=== PATIENT | female | born 2000 | race Caucasian/White ===

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

== ENCOUNTER 2018-05-08 22:00 | Emergency (ER) | payer MEDICAID, SELFPAY ==
[2018-05-08 22:00] VITALS: BP 127/77; PULSE 85; RESP 18; TEMP 36.2; O2SAT 98; BMI 21.5
[2018-05-08] MEDS: Ondansetron 4 MG/2 ML Vial IV (22:22)
[2018-05-08] MEDS: 0.9% Normal Saline 1,000 ML 1000 ML IV (22:22)
[2018-05-08 22:29] LABS: Absolute Lymphocyte Count 1.48 X10^3/ul (0.83-4.51); Absolute Neutrophil Count 5.7 X10^3/uL (2.0-7.7); Basophil# 0.01 X10^3/uL; Basophil% 0.1 % (0-1); Eosinophil# 0.05 X10^3/uL; Eosinophils% 0.7 % (0-5); Hematocrit 37.9 % (37-47); Hemoglobin 11.6 g/dl (12.0-15.0); Lymphocyte # 1.48 X10^3/ul (4.0); Lymphocyte % 19.6 % (19-41); Mean Corp Hgb Conc 30.6 g/gl (32-36); Mean Corpuscular Hgb 23.9 pg (27.0-32.0); Mean Platelet Vol. 9.4 fl (6.2-12.0); Neutrophil % 75.5 % (47-70); Platelet Count 313 K/mm3 (150-450); RBC Distribution Width CV 17.3 % (11.6-14.6); RBC Distribution Width SD 49.3 fl (35.1-43.9); Red Blood Count 4.86 M/mm3 (4.2-5.4); White Blood Count 7.6 K/mm3 (4.4-11.0)
[2018-05-08 22:30] LABS: POSITIVE COUNT NO; POSITIVE DIFFERENTIAL NO; POSITIVE MORPHOLOGY NO
[2018-05-08 22:54] LABS: Mucous, Urine 0 SEEN /hpf (<or=2+)
[2018-05-08 22:55] LABS: Color, Urine Yellow (Yellow); Glucose, Dipstick Normal (Normal); Ketone-Dipstick 5 mg/dl (Negative); Leukocyte Esterase-Dipstick 500 /ul (Negative); Nitrite-Dipstick Positive (Negative); Occult Blood-Urine 250 /ul (Negative); Protein-Dipstick 30 mg/dl (Negative); Urine Bilirubin Dipstick Negative (Negative); Urine Clarity Cloudy (Clear); Urine Urobilinogen 1 mg/dl (Normal); Urine pH 6.5 (5.0 - 8.0)
[2018-05-08 22:56] LABS: ALB/GLOB Ratio 0.9 RATIO (0.9-2.4); AST(SGOT) 11 U/L (15-37); Alanine Aminotransfer ALT/SGPT 16 U/L (13-56); Albumin, Serum 3.6 g/dL (3.2-5.0); Alkaline Phosphatase 33 U/L (45-117); Anion Gap 7 (5-15); BUN 12 mg/dL (7-18); BUN/Creat Ratio 19.9 RATIO (10-20); Calcium,Total 8.5 mg/dL (8.5-10.1); Chloride 107 mmol/L (98-107); EST Glomerular Filtration Rate 135 mL/min (>60); Est Glom Filt Rate - Afr Amer 163 mL/min (>60); Estimated Creatinine Clearance 129.15 ml/min; Globulin 4.1 g/dL (2.2-4.2); Glucose 94 mg/dL (74-106); Lipase 113 U/L (73-393); Potassium 3.7 mmol/L (3.5-5.1); Protein, Total 7.7 g/dL (6.4-8.2); Sodium Level 138 mmol/L (136-145)
[2018-05-08 23:04] LABS: Red Blood Cells-Urine > 100 SEEN /hpf (0-5)
[2018-05-08 23:05] LABS: Squamous Epithelial Cells - UA 0-5 SEEN /hpf (5-10); White Blood Cells 10-25 SEEN /hpf (0-5)
[2018-05-08 23:06] LABS: Bacteria 3+ /hpf (None Seen)
--- NOTE | 2018-05-08 23:13 | ED.VISSUMM ---
- ER Visit Summary Date of Service: 05/08/18 Chief Complaint: Abdominal pain History of Present Illness: The patient is a 18 F who presents with abdominal pain. She is currently on her menstrual period. She has had some lower abdominal cramping which is no worse than normal when she is on her menstrual period. This evening after eating dinner she developed nausea and vomiting. She has had 5 episodes of nonbloody nonbilious emesis over the last 5-6 hours. No diarrhea. She denies any dysuria frequency urgency. She also complains of a headache. Her mother was recently admitted for an influenza-like illness. Patient reports chills but no fevers. Physical Examination: Afebrile vitals normal No distress Moist mucous membranes Heart regular rate and rhythm Lungs are clear Abdomen soft nontender nondistended Alert No focal or lateralizing neurological deficits Test Results: Labs notable for hemoglobin 11.6. UA shows 500 leukocyte esterase, positive nitrates, 10-25 WBCs, greater than 100 RBCs, 3+ bacteria. Emergency Department Course and Treatment: Her urinalysis is contaminated with blood likely related to her menstrual period however does show leukocyte esterase and nitrates as well suggestive of UTI. She was given Bactrim here. She was treated with IV fluids and Zofran. On reevaluation she does feel better she had no further vomiting but is still complaining of a headache and was given IV Toradol. Patient will be discharged. She understands to return for new or worsening symptoms. She was also given a prescription for Zofran for nausea. Treatment Plan: [] Disposition: Discharge Impression: UTI Vomiting Headache This note was generated with [employer] dictation software. It may contain incorrect words, spelling, and punctuation that were not noted in review of the chart prior to signing ED Disposition - Plan for ED Patient: Referrals: Reginaldo Jorgensen MD [Primary Care Provider] -
--- NOTE | 2018-05-08 23:15 | ED.DEP ---
ED Disposition - Plan for ED Patient: Instructions: ED Nausea Vomiting, ED UTI Cystitis Female Prescriptions: Ondansetron [Zofran Odt] 4 mg PO Q8H PRN PRN #10 tab PRN Reason: Nausea Smz/Tmp Ds [Bactrim Ds] 1 tab PO BID #14 tab Referrals: Reginaldo Jorgensen MD [Primary Care Provider] -
[2018-05-08] MEDS: Smz/Tmp Ds Tablet 1 TABLET PO (23:29)
[2018-05-08] MEDS: Ketorolac 30 MG/ML Syringe IV (23:29)
[2018-05-08 23:36] VITALS: RESP 16
== END 2018-05-08 23:36 | disposition home or self-care (01) ==
LOC: ED 22:29
PROVIDERS: Emergency Provider Emergency Medicine; Family Provider Family Medicine; PCP Family Medicine
DX: N39.0 Urinary tract infection, site not specified (principal); R51 Headache; R11.2 Nausea with vomiting, unspecified
CPT/HCPCS: 80053; 81001; 83690; 85025; 96361; 96374; 96375; 99283; J7030; A4216; J2405

== ENCOUNTER → 2019-03-25 14:16 | Outpatient (CLI) | payer MEDICAID, SELFPAY ==
[2019-03-25 17:12] LABS: Chlamydia Trachomatis by PCR Negative (Negative); Neisserai gonorrhoeae by PCR Negative (Negative); Probe Check PASS; Sample Adequacy Control PASS; Specimen Processing Control PASS
== END ==
LOC: LABSPEC 14:18
PROVIDERS: Visit Provider Obstetrics & Gynecology
DX: Z11.3 Encounter for screening for infections with a predominantly sexual mode of transmission (principal)
CPT/HCPCS: 87491; 87591

== ENCOUNTER 2019-09-21 16:35 | Emergency (ER) | payer MEDICAID, SELFPAY ==
[2019-09-21 16:36] VITALS: BP 121/86; PULSE 59; RESP 18; TEMP 36.7; O2SAT 99; BMI 22.8
--- NOTE | 2019-09-21 17:29 | ED.VIS.GEN ---
History of Present Illness Chief Complaint: Lower Extremity Injury Informant: Patient Narrative: Patient presents with right ankle pain. She states he was not watching where she was going and stepped in a hole and rolled her ankle. She is ambulatory on scene in the ED. She complains of pain when she steps on the lateral aspect of the right ankle as well as the dorsum of the right foot. She had ibuprofen last night which seemed to help but she did not take any today she has recurrence of pain. Past Medical History - Allergies and Home Meds Allergies/Adverse Reactions: Allergies No Known Allergies Allergy (Verified 09/21/19 16:38) Primary Care Physician: Reginaldo Jorgensen [Primary Care Provider] - Prior records reviewed: Yes Lives: With Family Smoking Status: Current every day smoker Alcohol: None Drugs: None Review of Systems General: Denies: Chills, Fever, Sweats Eyes: Denies: Visual changes - bilaterally, Diplopia ENT: Denies: Rhinorrhea, Sore throat Cardiovascular: Denies: Chest pain, Palpitations Respiratory: Denies: Dyspnea, Cough, Dyspnea on exertion Gastrointestinal: Denies: Abdominal pain, Nausea, Vomiting, Diarrhea, Melena, Hematochezia Musculoskeletal: Reports: Arthralgias - : Foot pain Skin: Denies: Rash Neurological: Denies: Headache Psych: Reports: Depression Physical Exam Vital Signs/Narrative: Vital Signs Temp Pulse Resp BP Pulse Ox 09/21/19 16:36 98.0 F 59 L 18 121/86 H 99 General: Well nourished, Well developed, No Acute Distress Head: Normocephalic, Atraumatic Cardiovascular: Regular rate, Regular rhythm Respiratory: No distress, CTA bilaterally Extremities: - - Tenderness to palpation over lateral right malleolus. There is also mild tenderness over the dorsum of the right foot. There is no bruising or deformity. Skin: Normal color, No rash Neurological: Alert Psychological: Normal affect Diagnostic/Tx/Re-eval - Medical Decision Making Presents with ankle pain after twisting her ankle. Her x-ray is negative. She is given Naprosyn for pain. She be placed in a Aircast and given crutches. She is counseled to ice and elevate. Patient stable for discharge. ED Disposition - Plan for ED Patient: Disposition: Home or Assisted Living Diagnosis: Ankle sprain Instructions: ED Sprain Ankle W X Ray Prescriptions: Naproxen [Naprosyn] 500 mg PO BID PRN #20 tab Prescription Printed Referrals: Reginaldo Jorgensen [Primary Care Provider] -
--- NOTE | 2019-09-21 17:31 | RAD_ITS ---
STUDY: X-RAY - RIGHT FOOT CLINICAL: Female, 19 years old. RIGHT ANKLE AND FOOT PAIN AFTER FALL. MORE PAIN ON LATERAL SIDE TECHNIQUE: 3 view(s) of the foot. COMPARISON: None. FINDINGS: Normal talus, calcaneus, and tarsal bones. Normal visualized subtalar, talonavicular, calcaneocuboid, tarsal and tarsometatarsal articulations. Normal metatarsi. Normal metatarsophalangeal joint of the great toe. There is a bipartite tibial sesamoid. Normal interphalangeal joint of the great toe. Normal phalanges of the great toe. Normal second through fifth metatarsophalangeal joints. Normal interphalangeal joints and phalanges of the lesser toes. The soft tissue structures are unremarkable. RAD/Foot min 3 Views IMPRESSION: Normal x-ray examination of the foot. Electronically Signed: Meghan Mccall MD at 18:10 EDT , Service support ,
[2019-09-21] MEDS: Ibuprofen 600 MG Tablet PO (17:52)
--- NOTE | 2019-09-21 17:57 | RAD_ITS ---
STUDY: X-RAY - RIGHT ANKLE REASON FOR EXAM: Female, 19 years old. RIGHT ANKLE AND FOOT PAIN AFTER FALL. MORE PAIN ON LATERAL SIDE TECHNIQUE: 3 view(s) of the ankle. COMPARISON: None. FINDINGS: Normal visualized distal tibia and fibula. Normal medial and lateral malleoli. Normal tibiotalar articulation and ankle mortise. Normal visualized talus and calcaneus. The visualized subtalar, talonavicular, calcaneocuboid and tarsal articulations are normal. Soft tissue swelling. RAD/Ankle min 3 Views IMPRESSION: Soft tissue swelling without underlying fracture or dislocation. Electronically Signed: Meghan Mccall MD at 18:09 EDT , Service support ,
== END 2019-09-21 18:49 | disposition home or self-care (01) ==
PROVIDERS: Emergency Provider Student in an Organized Health Care Education/Training Program; PCP Family Medicine
DX: S93.401A Sprain of unspecified ligament of right ankle, initial encounter (principal); F17.200 Nicotine dependence, unspecified, uncomplicated; X50.1XXA Overexertion from prolonged static or awkward postures, initial encounter; Y93.01 Activity, walking, marching and hiking; Y92.89 Other specified places as the place of occurrence of the external cause; Y99.8 Other external cause status
CPT/HCPCS: 73610; 73630; 99284

== ENCOUNTER 2019-10-02 03:19 | Emergency (ER) | payer MEDICAID, SELFPAY ==
--- NOTE | 2019-10-02 03:20 | ED.VIS.GEN ---
History of Present Illness Chief Complaint: Female C/O Informant: Patient Narrative: 19-year-old female presents with chief complaint of vaginal discharge. She states she just finished her normal. And she still having brown vaginal discharge. She states it is not bloody. She has some mild cramping. No fevers, chills, nausea, vomiting. She states she does have an [employer] but has not called her because the cramping just started overnight. Dates she is not concerned for STDs. Past Medical History - Allergies and Home Meds Allergies/Adverse Reactions: Allergies No Known Allergies Allergy (Verified 10/02/19 03:23) Primary Care Physician: Reginaldo Jorgensen [Primary Care Provider] - Prior records reviewed: Yes Lives: Spouse/ Significant Other Smoking Status: Current every day smoker Alcohol: None Drugs: None Review of Systems General: Denies: Chills, Fever, Sweats Eyes: Denies: Visual changes - bilaterally, Diplopia ENT: Denies: Rhinorrhea, Sore throat Cardiovascular: Denies: Chest pain, Palpitations Respiratory: Denies: Dyspnea, Cough, Dyspnea on exertion Gastrointestinal: Reports: Abdominal pain. Denies: Nausea, Vomiting, Diarrhea, Melena, Hematochezia Genitourinary: Denies: Dysuria, Hematuria, Frequency - Brownish vaginal discharge Musculoskeletal: Denies: Back pain, Extremity Pain Skin: Denies: Rash, Wounds Neurological: Denies: Headache, Weakness, Numbness Physical Exam General: Well nourished, Well developed, No Acute Distress Head: Normocephalic, Atraumatic Eyes: Perrl, EOMI ENT: Moist mucous membranes, No rhinorrhea Neck: Supple, Nontender Cardiovascular: Regular rate Respiratory: No distress Abdomen: Soft : - - There is to be dried blood in the posterior fornix. The cervical os is closed. There is no active bleeding. No adnexal tenderness. No cervical motion tenderness. Back: Nontender, Normal Inspection Extremities: Nontender, No edema Skin: Normal color, No rash Neurological: Alert, Oriented x3 Psychological: Normal affect, Normal Mood Diagnostic/Tx/Re-eval - Medical Decision Making She presents with mild pelvic cramping and brownish discharge vaginally. On examination there is a scant amount of what looks like dried blood in the posterior fornix. The cervix is closed. She has no adnexal tenderness. No cervical motion tenderness. There is no other discharge to be noted. Patient's vital signs are stable and she is afebrile. Her GC chlamydia is pending a however she has no concern for STDs at this time and does not want to be empirically treated. She is negative for trichomonas. hCG is negative. Urinalysis is positive so she will be treated for UTI. She is counseled she will be called with the results of her STD testing. I believe she needs a pelvic ultrasound at this time. She feels comfortable being discharged home and following with her [employer]. Impression 1. Vaginal discharge 2. UTI 3. Mild pelvic cramping ED Disposition - Plan for ED Patient: Diagnosis: Vaginal discharge Instructions: ED Pelvic Pain UKO, ED CYSTITIS Female Adult Prescriptions: Cephalexin [Keflex] 500 mg PO Q12 #14 cap Prescription Printed Referrals: Reginaldo Jorgensen [Primary Care Provider] -
[2019-10-02 03:21] VITALS: BP 127/71; PULSE 87; RESP 16; TEMP 37; O2SAT 97; BMI 21.9
[2019-10-02 04:36] LABS: Color, Urine Yellow (Yellow); Glucose, Dipstick Normal (Normal); Ketone-Dipstick Negative (Negative); Leukocyte Esterase-Dipstick 25 /ul (Negative); Mucous, Urine 0 SEEN /hpf (<or=2+); Nitrite-Dipstick Positive (Negative); Occult Blood-Urine 50 /ul (Negative); Protein-Dipstick Negative (Negative); Squamous Epithelial Cells - UA 0 SEEN /hpf (5-10); Urine Bilirubin Dipstick Negative (Negative); Urine Clarity Clear (Clear); Urine Urobilinogen 1 mg/dl (Normal)
[2019-10-02 04:38] LABS: Internal QC Validated? YES +Cl - CLEAR BKGD; Pregnancy, Urine Negative Negative
[2019-10-02 04:44] LABS: Bacteria 1+ /hpf (None Seen); Red Blood Cells-Urine 0-5 SEEN /hpf (0-5); White Blood Cells 0-5 SEEN /hpf (0-5)
[2019-10-02] MEDS: Cephalexin 250 MG Capsule 500 MG PO (04:50)
[2019-10-02 04:52] VITALS: BP 130/78; PULSE 82; RESP 18; O2SAT 99
[2019-10-02 06:42] LABS: Chlamydia Trachomatis by PCR Negative (Negative); Neisserai gonorrhoeae by PCR Negative (Negative); Probe Check PASS; Sample Adequacy Control PASS; Specimen Processing Control PASS
== END 2019-10-02 04:52 | disposition home or self-care (01) ==
PROVIDERS: Emergency Provider Student in an Organized Health Care Education/Training Program; PCP Family Medicine
DX: N39.0 Urinary tract infection, site not specified (principal); N89.8 Other specified noninflammatory disorders of vagina; F17.200 Nicotine dependence, unspecified, uncomplicated
CPT/HCPCS: 81001; 81025; 87077; 87086; 87088; 87186; 87210; 87491; 87591; 99283

== ENCOUNTER → 2020-03-27 13:57 | Outpatient (CLI) | payer MEDICAID, SELFPAY ==
[2020-03-27 16:31] LABS: Free T3 2.9 pg/mL (2.18-3.98); T4 Free Direct 1.02 ng/dL (0.76-1.46); Thyroid Stim Hormone (TSH) 2.22 uIU/mL (0.358-3.74)
[2020-03-30 04:10] LABS: Chlamydia By Nucleic Acid AMP Negative (Negative)
[2020-03-30 11:28] LABS: Gonococcus By Nucleic Acid AMP Negative (Negative)
[2020-03-30 14:12] LABS: HPV Reflexed? NOT INDICATED
== END ==
PROVIDERS: PCP Family Medicine; Visit Provider Obstetrics & Gynecology
DX: R41.3 Other amnesia (principal); Z12.4 Encounter for screening for malignant neoplasm of cervix; Z11.3 Encounter for screening for infections with a predominantly sexual mode of transmission
CPT/HCPCS: 36415; 84439; 84443; 84481; 87491; 87591; 88175; G0145

== ENCOUNTER 2020-11-27 09:05 | Emergency (ER) | payer MEDICAID, SELFPAY ==
[2020-11-27 09:06] VITALS: BP 133/101; PULSE 101; RESP 16; TEMP 36.7; O2SAT 100; BMI 20.5
[2020-11-27 10:02] VITALS: BP 133/100; PULSE 100; RESP 16; TEMP 36.7; O2SAT 100
--- NOTE | 2020-11-27 10:19 | EDS_ITS ---
HPI History of Present Illness Chief Complaint: Headache Informant: patient Narrative Narrative: Patient is a 20 year old female presenting with 3 days of upper respiratory symptoms. Patient states it started with a dry throat that developed into a cough. She now had associated congestion, rhinorrhea and myalgias. She denies any fever, shortness of breath, nausea, vomiting, abdominal pain or rash. She has had some increased urinary frequency but attributes that to drinking more fluids. She took DayQuil at 7 AM. Patient not had her Covid vaccine. She denies any sick contacts. PFSH PFSH Medical History no medical history Home Medications cephalexin 500 mg PO Q12 #14 cap 10/02/19 [Rx Last Taken Unknown] Allergy/AdvReac Type Severity Reaction Status Date / Time No Known Allergies Allergy Verified 11/27/20 09:09 Surgical History Hx of section Social History Smoking Status: Never smoker ROS ROS ED Constitutional Constitutional ED: Reports chills; Denies fever(s) ENT ENT ED: Reports rhinorrhea, sore throat and other Details: congestion ; Denies ear pain Cardiovascular Cardiovascular: Denies chest pain or palpitations Respiratory/Chest Respiratory/Chest: Reports cough; Denies dyspnea, dyspnea on exertion or sputum Gastrointestinal Gastrointestinal: Denies abdominal pain, diarrhea, nausea or vomiting Genitourinary Genitourinary ED: Reports urinary frequency; Denies dysuria or hematuria Musculoskeletal Musculoskeletal: Reports myalgias; Denies arthralgias, back pain or neck pain Integumentary Denies rash Neurologic Neurologic: Reports headache(s); Denies weakness Psychiatric Psychiatric: Denies anxiety or depression EXAM Physical Exam Const Vital Signs: 11/27/20 09:06 11/27/20 10:02 Temperature 98.0 F 98.0 F Temperature Source Temporal Temporal Pulse Rate 101 H 100 Respiratory Rate 16 16 Blood Pressure 133/101 H 133/100 H Blood Pressure Mean 111 111 Pulse Ox 100 100 Oxygen Delivery Method Room Air Room Air Positive well nourished and well developed General Appearance ED: well developed HEENT Reports TM's clear and moist mucous membranes Negative for trauma Tympanic Membrane ED: Yes TM's clear Eyes PERRL and EOMs intact bilaterally Neck No no lymphadenopathy, supple and no meningeal signs General: Negative for tenderness Chest Wall inspection of chest normal Resp normal respiratory effort and clear to auscultation bilaterally Cardio regular rate, regular rhythm and no murmurs GI normal to inspection, nondistended, normoactive bowel sounds and non-tender Back/Spine no CVA tenderness Extremity normal to inspection General Extremety ED: Negative for edema or tenderness General Extremity: Negative for edema Neuro oriented x3 Sensorium / Orientation: alert Motor Exam: Negative for general weakness Psych mental status grossly normal Skin no rashes or lesions noted MDM MDM MDM Narrative Medical decision making narrative: Patient evaluated for 4 days of upper respiratory symptoms. She is well-appearing on my exam. No obvious source of bacterial infection based on physical exam. I suspect she has some type of viral upper respiratory syndrome. Covid test is pending. Is given Motrin in the ER. Will be treated symptomatically with NSAIDs and [id number] cough and cold medication. Covid test is negative. Patient given a work note for today and tomorrow. Counseled on return precautions. Discharged home in stable condition. Discharge Plan Triage Chief Complaint: Headache ED Provider: Mary Pena Dx/Rx/DC Orders Clinical Impression: URI (upper respiratory infection), Acute viral syndrome, Encounter for scr eening for COVID-19 Instructions: ED URI, Viral, No Abx (Adult) Prescriptions: No Action cephalexin 500 MG capsule 500 mg PO Q12 Qty: 14 RF: 0 Primary Care Provider: Care Physician,No Primary Referrals: Reginaldo Jorgensen [[facility]] - Activity Restrictions/Additional Instructions: Your Covid test was negative. Take [id number] cough and congestion medication to help with your symptoms. Return the emergency room with any worsening symptoms especially difficulty breathing. You may return to work in 2 days if feeling better. Disposition Disposition: Home, Self Care Discharge Date/Time: 11/27/20 11:08
[2020-11-27] MEDS: Ibuprofen 600 MG Tablet PO (11:07)
== END 2020-11-27 11:08 | disposition home or self-care (01) ==
LOC: ED 11:06
PROVIDERS: Emergency Provider Emergency Medicine
DX: J06.9 Acute upper respiratory infection, unspecified (principal); Z11.52 Encounter for screening for COVID-19
CPT/HCPCS: 87426; 99283

== ENCOUNTER 2021-01-15 03:52 | Emergency (ER) | payer MEDICAID, SELFPAY ==
[2021-01-15 03:53] VITALS: BP 133/93; PULSE 75; RESP 16; TEMP 36.8; O2SAT 100; BMI 20.8
--- NOTE | 2021-01-15 04:12 | CT_ITS ---
STUDY: CT ABDOMEN AND PELVIS WITHOUT CONTRAST REASON FOR EXAM: Female, 20 years old. Kidney Stone RADIATION DOSAGE (If Supplied By Facility): CTDIvol = ( 6.04 ) mGy, DLP = ( 271.80 ) mGycm TECHNIQUE: Transaxial 2.5 mm images were obtained from the dome of the diaphragm to the symphysis pubis without oral contrast, and without intravenous contrast. Sagittal and coronal images were reconstructed. This examination is limited for the evaluation of gastrointestinal, solid organs and vascular structures due to the lack of intravenous and oral contrast. Individualized dose optimization techniques were used for this CT. COMPARISON: None. FINDINGS: The visualized lung bases are unremarkable. The visualized portions of the heart are within normal limits. Normal liver. There are multiple gallstones. Gallbladder is contracted. No choledocholithiasis or biliary obstruction. Normal spleen. Normal pancreas. Normal bilateral adrenal glands. Normal right kidney. Mild prominence of the left renal collecting system and proximal left ureter. No overt hydroureter, obstructing renal or ureteral calculus detected. The entirety of the bilateral ureters is not visualized. Normal visualized stomach. Normal small intestine. Normal colon. The appendix is visualized and appears normal. Normal abdominal aorta. Normal inferior vena cava. Normal retroperitoneum. Normal urinary bladder. Age-appropriate uterus. Normal abdominal wall. Normal osseous structures. CT/Abdomen/Pelvis without Cont IMPRESSION: There is no appendicitis, colitis, ascites, abscess, collection, perforation or obstruction. Mild caliectasis of the left renal collecting system can be seen with a recently passed calculus. No obstructing renal or ureteral calculi detected bilaterally, the entirety of the ureteral course is not visualized and subtle pathology such as a 1 to 2 mm calculus could be obscured. Numerous gallbladder calculi in contracted gallbladder, no acute cholecystitis, biliary obstruction or choledocholithiasis detected. Electronically Signed: Jennifer Melendez MD at 5:10 EST , Service support ,
[2021-01-15 04:22] LABS: Absolute Lymphocyte Count 1.84 X10^3/uL (0.83-4.51); Absolute Neutrophil Count 4.9 X10^3/uL (2.0-7.7); Basophil# 0.01 X10^3/uL; Basophil% 0.1 % (0-1); Eosinophil# 0.14 X10^3/uL; Eosinophils% 1.8 % (0-5); Hematocrit 39.9 % (37-47); Hemoglobin 12.8 g/dL (12.0-15.0); Lymphocyte # 1.84 X10^3/ul (0.83-4.51); Lymphocyte % 24.3 % (19-41); Mean Corp Hgb Conc 32.1 g/dL (32-36); Mean Corpuscular Hgb 27.9 pg (27.0-32.0); Mean Corpuscular Volume 87.1 fL (81-99); Mean Platelet Vol. 11.1 fl (6.2-12.0); Monocyte# 0.69 X10^3/uL; Monocyte% 9.1 % (0-10); NRBC Flagged by Analyzer 0 % (0-5); Neutrophil # 4.87 X10^3/uL (2.7-7.7); Neutrophil % 64.4 % (47-70); Platelet Count 242 K/mm3 (150-450); RBC Distribution Width CV 13.6 % (11.6-14.6); RBC Distribution Width SD 43.6 fl (35.1-43.9); Red Blood Count 4.58 M/mm3 (4.2-5.4); White Blood Count 7.6 K/mm3 (4.4-11.0)
[2021-01-15] MEDS: Ondansetron 4 MG/2 ML Vial IV (04:23)
[2021-01-15] MEDS: Ketorolac 30 MG/ML Syringe IV (04:24)
[2021-01-15] MEDS: 0.9% Normal Saline 1,000 ML 250 ML IV (04:24)
[2021-01-15 04:33] LABS: Internal QC Validated? YES +Cl - CLEAR BKGD; Pregnancy, Serum, hCG Quali. NEGATIVE Negative
[2021-01-15 04:35] LABS: Anion Gap 4 (5-15); BUN 8 mg/dL (7-18); BUN/Creat Ratio 10.9 RATIO (10-20); Chloride 110 mmol/L (98-107); Creatinine, Serum 0.73 mg/dL (0.55-1.02); EST Glomerular Filtration Rate 105 mL/min (>60); Est Glom Filt Rate - Afr Amer 127 mL/min (>60); Estimated Creatinine Clearance 104.38 ml/min; Glucose 85 mg/dL (74-106); Potassium 3.5 mmol/L (3.5-5.1); Sodium Level 140 mmol/L (136-145)
--- NOTE | 2021-01-15 04:56 | EX.ED.DYSGE1 ---
HPI History of Present Illness Chief Complaint: Female C/O Informant: patient Onset/Context/Timing Onset: Days Context: Gradual Onset Timing: Intermittent Current Severity: Moderate Maximum Severity: Moderate Narrative Narrative: Patient presents with left flank pain that is occurred the last 3 nights. She initially thought was because she started her period but is never had symptoms like this previously. She had difficulty sleeping at night. She states during the day she feels just fine. She denies hematuria or dysuria. She denies urinary frequency. No fever or chills. PFSH PFSH Home Medications sulfamethoxazole-trimethoprim [Bactrim DS] 1 tab PO BID #20 tab 01/15/21 [Rx Last Taken Unknown] Allergy/AdvReac Type Severity Reaction Status Date / Time No Known Allergies Allergy Verified 01/15/21 04:01 Surgical History Hx of section Social History Smoking Status: Never smoker ROS ROS ED Constitutional Constitutional ED: Denies chills or fever(s) Eyes Eyes: Denies change in vision ENT ENT ED: Denies sore throat Cardiovascular Cardiovascular: Denies chest pain Respiratory/Chest Respiratory/Chest: Denies cough or dyspnea Gastrointestinal Gastrointestinal: Reports abdominal pain; Denies diarrhea, nausea or vomiting Genitourinary Genitourinary ED: Denies dysuria or hematuria Musculoskeletal Musculoskeletal: Reports back pain Integumentary Denies rash Neurologic Neurologic: Denies headache(s) or weakness Allergic/Immunologic Allergic/Immunologic ED: Denies urticaria EXAM Physical Exam Const Vital Signs: 01/15/21 03:53 Temperature 98.2 F Temperature Source Temporal Pulse Rate 75 Respiratory Rate 16 Blood Pressure 133/93 H Blood Pressure Mean 106 Pulse Ox 100 Oxygen Delivery Method Room Air Positive well nourished and well developed General Appearance ED: well developed HEENT Reports moist mucous membranes Eyes PERRL and EOMs intact bilaterally Neck supple Chest Wall inspection of chest normal and palpation of chest normal Resp normal respiratory effort and clear to auscultation bilaterally Cardio regular rate and regular rhythm GI normal to inspection, nondistended, normoactive bowel sounds and non-tender Palpation: soft Back/Spine General Back: CVA tenderness left Extremity normal to inspection Neuro oriented x3 Sensorium / Orientation: alert Psych mental status grossly normal Skin no rashes or lesions noted MDM MDM MDM Narrative Medical decision making narrative: Lab work, urinalysis, CT flank obtained. Patient given Toradol and Zofran. Lab Data Attestation: I reviewed the patient's lab results. Labs: Laboratory Results - last 24 hr 01/15/21 01/15/21 01/15/21 04:15 04:15 04:15 WBC 7.6 RBC 4.58 Hgb 12.8 Hct 39.9 MCV 87.1 MCH 27.9 MCHC 32.1 RDW Std Deviation 43.6 RDW Coeff of Nick 13.6 Plt Count 242 MPV 11.1 Immature Gran % (Auto) 0.300 Neut % (Auto) 64.4 Lymph % (Auto) 24.3 [place] % (Auto) 9.1 Eos % (Auto) 1.8 Baso % (Auto) 0.1 Absolute Neuts (auto) 4.9 Absolute Lymphs (auto) 1.84 Nucleated RBC % 0 Sodium 140 Potassium 3.5 Chloride 110 H Carbon Dioxide 26.0 Anion Gap 4 L BUN 8 Creatinine 0.73 Estim Creat Clear Calc 104.38 Est GFR (MDRD) Af Amer 127 Est GFR (MDRD) Non-Af 105 BUN/Creatinine Ratio 10.9 Glucose 85 Calcium 9.0 Serum , Qual NEGATIVE Urine Color Urine Clarity Urine pH Ur Specific [place] Urine Protein Urine Glucose (UA) Urine Ketones Urine Occult Blood Urine Nitrite Urine Bilirubin Urine Urobilinogen Ur Leukocyte Esterase Urine RBC Urine WBC Ur Squamous Epith Cells Urine Bacteria Urine Mucus 01/15/21 04:58 WBC RBC Hgb Hct MCV MCH MCHC RDW Std Deviation RDW Coeff of Nick Plt Count MPV Immature Gran % (Auto) Neut % (Auto) Lymph % (Auto) [place] % (Auto) Eos % (Auto) Baso % (Auto) Absolute Neuts (auto) Absolute Lymphs (auto) Nucleated RBC % Sodium Potassium Chloride Carbon Dioxide Anion Gap BUN Creatinine Estim Creat Clear Calc Est GFR (MDRD) Af Amer Est GFR (MDRD) Non-Af BUN/Creatinine Ratio Glucose Calcium Serum , Qual Urine Color Yellow Urine Clarity Cloudy Urine pH 6.0 Ur Specific [place] 1.020 Urine Protein 100 H Urine Glucose (UA) Normal Urine Ketones Negative Urine Occult Blood 50 H Urine Nitrite Positive H Urine Bilirubin Negative Urine Urobilinogen Normal Ur Leukocyte Esterase 500 H Urine RBC 5-10 SEEN Urine WBC >100 SEEN Ur Squamous Epith Cells 10-25 SEEN Urine Bacteria 4+ Urine Mucus 0 SEEN Radiography Diagnostic Testing: Clinical Impression(s) from Imaging Studies Abdomen/Pelvis CT 01/15/21 04:12 IMPRESSION: There is no appendicitis, colitis, ascites, abscess, collection, perforation or obstruction. Mild caliectasis of the left renal collecting system can be seen with a recently passed calculus. No obstructing renal or ureteral calculi detected bilaterally, the entirety of the ureteral course is not visualized and subtle pathology such as a 1 to 2 mm calculus could be obscured. Numerous gallbladder calculi in contracted gallbladder, no acute cholecystitis, biliary obstruction or choledocholithiasis detected. Electronically Signed: Jennifer Melendez MD at 5:10 EST , Service support , Treatment and Re-Evaluation Comments:: Lab work significant for UTI with 4+ bacteria and greater than 100 white cells. Nitrites are positive. Renal function is normal and white count is normal. CT scan reveals no obvious calculus. Patient is given a dose of IV Rocephin here and urine culture sent. She will be discharged with a 10-day prescription for Bactrim. Discharge Plan Triage Chief Complaint: Female C/O ED Provider: Ana Paredes Dx/Rx/DC Orders Instructions: Kidney Infec Dc, ED Pyelonephritis, Female (Adult) Prescriptions: New sulfamethoxazole-trimethoprim [Bactrim DS] 800-160 mg tablet 1 tab PO BID Qty: 20 RF: 0 Primary Care Provider: Care Physician,No Primary Referrals: Staci Guillermo MD [STAFF PHYSICIAN] - 1-2 Weeks Care Physician,No Primary [Primary Care Provider] - Disposition Disposition: Home, Self Care
[2021-01-15 05:11] LABS: Mucous, Urine 0 SEEN /hpf (<or=2+)
[2021-01-15 05:12] LABS: Color, Urine Yellow (Yellow); Glucose, Dipstick Normal (Normal); Ketone-Dipstick Negative (Negative); Leukocyte Esterase-Dipstick 500 /ul (Negative); Nitrite-Dipstick Positive (Negative); Occult Blood-Urine 50 /ul (Negative); Protein-Dipstick 100 mg/dl (Negative); Urine Bilirubin Dipstick Negative (Negative); Urine Clarity Cloudy (Clear); Urine Urobilinogen Normal (Normal)
[2021-01-15 05:25] LABS: Bacteria 4+ /hpf (None Seen); Red Blood Cells-Urine 5-10 SEEN /hpf (0-5); White Blood Cells >100 SEEN /hpf (0-5)
[2021-01-15 05:26] LABS: Squamous Epithelial Cells - UA 10-25 SEEN /hpf (5-10)
[2021-01-15] MEDS: Ceftriaxone 1 GM/50 ML BAG IV (05:59)
[2021-01-15 06:56] VITALS: PULSE 76; RESP 18; O2SAT 97
== END 2021-01-15 06:57 | disposition home or self-care (01) ==
PROVIDERS: Emergency Provider Emergency Medicine
DX: N39.0 Urinary tract infection, site not specified (principal); K80.20 Calculus of gallbladder without cholecystitis without obstruction
CPT/HCPCS: 74176; 80048; 81001; 84703; 85025; 87077; 87086; 87088; 87186; 96361; 96365; 96375; 99282; J7030; A4216; J2405

== ENCOUNTER → 2021-02-26 | Outpatient (CLI) | payer MEDICAID, SELFPAY | END | disposition home or self-care (01) | LOC: LABSPEC 13:14 | PROVIDERS: Referring Provider Physician Assistant Surgical; Visit Provider Physician Assistant Surgical | DX: Z11.52 Encounter for screening for COVID-19 (principal) | CPT/HCPCS: 87635; U0005; U0003 ==

== ENCOUNTER 2022-02-27 00:30 | Emergency (ER) | payer MEDICAID, SELFPAY ==
[2022-02-27 00:32] VITALS: BP 140/98; PULSE 105; RESP 16; TEMP 36.6; O2SAT 99; BMI 21.6
--- NOTE | 2022-02-27 00:52 | ED.VIS.DENTA ---
HPI History of Present Illness Chief Complaint: Dental Narrative Narrative: 21-year-old female presents with right lower jaw/dental pain that she is had over the last few days. Sometimes it is so bad that she cannot eat. She denies any fevers or chills. No sour taste in her mouth, no swelling of her face. She has not been to a dentist in over a year. She presents because of the pain mainly in her right lower jaw. She states at times it is in her right upper jaw also. PFSH PFSH Home Medications ibuprofen 600 mg tablet 600 mg PO Q8H PRN PRN pain #20 tabs 02/27/22 [Rx Last Taken Unknown] penicillin V potassium 500 mg tablet 500 mg PO TID #21 tabs 02/27/22 [Rx Last Taken Unknown] Allergy/AdvReac Type Severity Reaction Status Date / Time latex Allergy Swelling Verified 02/27/22 00:31 Surgical History Hx of section Social History Smoking Status: Never smoker ROS ROS ED ROS Narrative Constitutional: No fever, no chills. HEENT: No sore throat. No neck pain. No loss of vision. No rhinorrhea. Positive right lower jaw pain/tooth pain. Cardiovascular: No chest pain. No palpitations. No pedal edema. Respiratory: No cough, no shortness of breath. Abdominal: No abdominal pain. No nausea. No vomiting. Genitourinary: No dysuria. No hematuria. Musculoskeletal: No myalgias. No arthralgias. Neurologic: No headaches. No dizziness. No lightheadedness. Skin: No rash. No change in color. Psychiatric: No depression. No anxiety. EXAM Physical Exam Narrative Exam Narrative: Afebrile. Vital signs noted. HEENT: Normocephalic. Atraumatic. PERRL, EOMI. Neck soft and supple. No point tenderness or step off. 10 is to percussion right lower second molar. No drooling or trismus. No Frank angina. Airway patent. No cervical lymphadenopathy or meningismus. Cardiovascular: Regular rate and rhythm. No murmurs, rubs, or gallops appreciated. Respiratory: No tachypnea. Lungs clear to auscultation bilaterally. Gastrointestinal: Abdomen soft, nontender, with normoactive bowel sounds. No rebound or guarding. Neurological: Awake. Alert. Nonfocal, nonlateralizing. Skin: No rash. Normal color. No pallor. Musculoskeletal: No pedal edema. Full range of motion extremities. Const Vital Signs: 02/27/22 00:32 Temperature 97.9 F Temperature Source Temporal Pulse Rate 105 H Respiratory Rate 16 Blood Pressure 140/98 H Blood Pressure Mean 112 Pulse Ox 99 Oxygen Delivery Method Room Air MDM MDM MDM Narrative Medical decision making narrative: Smoking cessation was discussed. She was given her first dose of ibuprofen and penicillin here in the emergency department and a prescription to take penicillin 3 times a day for the next week along with 20 ibuprofen 600 mg tablets to take for analgesia. She will follow-up with a dentist soon as possible, she states she needs to find one that will take her medical card. IFISH be discharged safely home with follow-up. Return instructions were reviewed. Disposition is discharged home in stable condition. Discharge Plan Triage Chief Complaint: Dental ED Provider: Sumeet Fair Dx/Rx/DC Orders Clinical Impression: Pain, dental Instructions: ED Dental Pain Prescriptions: New penicillin V potassium 500 mg tablet 500 mg PO TID Qty: 21 0RF ibuprofen 600 mg tablet 600 mg PO Q8H PRN PRN (Reason: pain) Qty: 20 0RF Primary Care Provider: Care Physician,No Primary Referrals: Care Physician,No Primary [Primary Care Provider] - Activity Restrictions/Additional Instructions: Follow-up with a dentist as soon as possible. Stop smoking. Disposition Disposition: Home, Self Care
[2022-02-27] MEDS: Penicillin Vk 250 MG Tablet 500 MG PO (00:57)
[2022-02-27] MEDS: Ibuprofen 600 MG Tablet PO (00:57)
== END 2022-02-27 00:58 | disposition home or self-care (01) ==
PROVIDERS: Emergency Provider Emergency Medicine; Visit Provider Emergency Medicine
DX: K08.89 Other specified disorders of teeth and supporting structures (principal); R68.84 Jaw pain
CPT/HCPCS: 99282

== ENCOUNTER 2022-07-10 14:06 | Emergency (ER) | payer MEDICAID, SELFPAY ==
[2022-07-10 14:06] VITALS: BP 125/80; PULSE 109; RESP 18; TEMP 36.1; O2SAT 96; BMI 20.9
--- NOTE | 2022-07-10 14:28 | EX.ED.DYSGE1 ---
HPI <PHILLIP Cardenas - Last Filed: 07/10/22 16:23> History of Present Illness Chief Complaint: Ear Problem Narrative Narrative: Patient presenting today with left ear pain that she has had for the past 4 hours. She states that the pain is sharp and uncomfortable. She reports that she does sometimes get ear pain but it usually does not last this long. She denies any tinnitus or decreased hearing. She reports that her seasonal allergies have been worse over the past few days and she has had rhinorrhea. She denies any fever, chills, sore throat, and cough. PFSH <PHILLIP Cardenas - Last Filed: 07/10/22 16:23> PFSH Home Medications ibuprofen 600 mg tablet 600 mg PO Q8H PRN PRN pain #20 tabs 02/27/22 [Rx Last Taken Unknown] penicillin V potassium 500 mg tablet 500 mg PO TID #21 tabs 02/27/22 [Rx Last Taken Unknown] azithromycin 250 mg tablet 250 mg PO DAILY #4 TABLETS 07/10/22 [Rx Last Taken Unknown] Allergy/AdvReac Type Severity Reaction Status Date / Time latex Allergy Swelling Verified 02/27/22 00:31 Surgical History Hx of section Social History Smoking Status: Never smoker ROS <PHILLIP Cardenas - Last Filed: 07/10/22 16:23> ROS ED Constitutional Constitutional ED: Denies chills, fever(s) or sweats ENT ENT ED: Reports ear pain right and rhinorrhea Cardiovascular Cardiovascular: Denies chest pain Respiratory/Chest Respiratory/Chest: Denies cough or dyspnea Gastrointestinal Gastrointestinal: Denies abdominal pain, nausea or vomiting Musculoskeletal Musculoskeletal: Denies arthralgias or myalgias Integumentary Denies abscess, Abrasions or rash Neurologic Neurologic: Denies weakness Psychiatric Psychiatric: Denies anxiety or depression EXAM <PHILLIP Cardenas - Last Filed: 07/10/22 16:23> Physical Exam Const Vital Signs: 07/10/22 14:06 Temperature 97.0 F L Temperature Source Temporal Pulse Rate 109 H Respiratory Rate 18 Blood Pressure 125/80 H Blood Pressure Mean 95 Pulse Ox 96 Oxygen Delivery Method Room Air Positive well nourished, well developed and no apparent distress General Appearance ED: well developed HEENT Reports normocephalic and head/scalp atraumatic HEENT Narrative: Unable to visualize right TM due to cerumen. Left TM erythemic with a bullae. Mouth ED: Yes moist mucous membranes normal Eyes PERRL and EOMs intact bilaterally Neck full ROM and supple Chest Wall inspection of chest normal Resp normal respiratory effort and clear to auscultation bilaterally Cardio regular rate and regular rhythm GI soft to palpation, non-tender, non-distended and no masses Back/Spine normal ROM and normal to inspection Extremity normal to inspection and full ROM Neuro oriented x3, CN's II-XII intact bilaterally, moves all extremities, no focal motor deficits and no sensory deficits noted Sensorium / Orientation: awake and alert Psych mental status grossly normal and thought process normal Skin no rashes or lesions noted and no wounds <Dr. Tk Adkins, - Last Filed: 07/10/22 16:00> Physical Exam Const Vital Signs: 07/10/22 14:06 Temperature 97.0 F L Temperature Source Temporal Pulse Rate 109 H Respiratory Rate 18 Blood Pressure 125/80 H Blood Pressure Mean 95 Pulse Ox 96 Oxygen Delivery Method Room Air MDM <PHILLIP Cardenas - Last Filed: 07/10/22 16:23> [facility] Narrative Medical decision making narrative: Patient presenting today due to left-sided ear pain that she has had for the past 4 hours. Differentials include otitis media, otitis externa, cerumen impaction, mastoiditis. she does not have any mastoid tenderness bilaterally. Left TM is erythematous with a bullae. She is well-appearing and in no acute distress, she is afebrile. She will be started on azithromycin with first dose here. She is to alternate Tylenol and ibuprofen for pain. She will be discharged home in stable condition and is comfortable with plan. <Dr. Tk Adkins, - Last Filed: 07/10/22 16:00> [facility] Treatment and Re-Evaluation :: I have personally performed a face to face assessment of the patient and have reviewed the MANJIT Note. I performed a substantive portion of the visit including all aspects of the following. My glez findings include: History: Patient presents with left ear pain that began today. Patient states it began rather suddenly. Patient states it is localized to the left ear. Patient denies any sore throat or difficulty swallowing. Patient denies any hearing changes. Patient denies any tinnitus. Patient denies any headaches. Patient denies any nausea or vomiting. Patient denies any fevers or chills. Exam: Vital signs are stable. Patient is afebrile. Patient is in no acute distress. Left tympanic membrane was erythematous. There is a questionable bulla noted on the tympanic membrane. The right tympanic membrane is clear. External auditory canals are clear. Oral mucosa is pink and moist. Oropharynx is clear. Airway is patent. Neck is supple. Trachea is midline. There is no JVD or lymphadenopathy. Heart was regular rate and rhythm. Lungs are clear and equal bilaterally. Cranial nerves II through XII are intact. There are no focal motor or sensory deficits. Medical Decision Making: Patient was advised that this is most likely bullous myringitis. Patient was given a dose of Zithromax here. Patient was given a prescription for Zithromax. Patient was instructed to take Tylenol or ibuprofen as needed for pain. Patient was instructed to follow-up with her primary care physician in 5 to 7 days. Patient understood and was agreeable with the plan. All questions were answered. Discharge Plan Triage Chief Complaint: Ear Problem ED Midlevel Provider: Serina Jimenes ED Provider: Tk Adkins Dx/Rx/DC Orders Clinical Impression: Bullous myringitis of left ear Instructions: ED Otitis Media Antibiotic ... Prescriptions: New azithromycin 250 mg tablet 250 mg PO DAILY Qty: 4 0RF No Action penicillin V potassium 500 mg tablet 500 mg PO TID Qty: 21 0RF ibuprofen 600 mg tablet 600 mg PO Q8H PRN PRN (Reason: pain) Qty: 20 0RF Primary Care Provider: Care Physician,No Primary Referrals: Care Physician,No Primary [Primary Care Provider] - Activity Restrictions/Additional Instructions: Return for any worsening of your symptoms. Disposition Disposition: Home, Self Care Discharge Date/Time: 07/10/22 15:33
[2022-07-10] MEDS: Azithromycin 250 MG Tablet 500 MG PO (15:29)
== END 2022-07-10 15:33 | disposition home or self-care (01) ==
PROVIDERS: Emergency Provider Emergency Medicine; Visit Provider Emergency Medicine
DX: H73.012 Bullous myringitis, left ear (principal)
CPT/HCPCS: 99283

== ENCOUNTER 2023-05-01 09:35 | Inpatient (IN) | payer MEDICAID, SELFPAY ==
--- NOTE | 2023-04-13 11:13 | HP.PCM_ITS ---
History and Physical Date of Admission: 05/01/23 HPI: The patient is a 22 year old female presenting for pre-operative visit. She is scheduled for and tubal sterilization, for previous c/s and sterilization request on . Procedure discussed along with risks, benefits and complications. Other alternatives discussed for management. Consent form signed? Yes. ? ? PAST MEDICAL HISTORY PAST MEDICAL HISTORY Diagnosis Date ? Attention deficit disorder ? ? Iron deficiency anemia, unspecified ? ? Murmur, heart ? ? NEGATIVE MEDICAL HISTORY 03/02/2010 ? normal color vision ? 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 per referral to ped neuro Dr. Paris. Conclusion; mild delays cognitive and speech. Referred to speech therapy with assessment: normal for age. ? Urinary tract infection, site not specified ? ? frequent, nephrology at [facility] with significant post-void residuals ? ? PAST SURGICAL HISTORY PAST SURGICAL HISTORY Procedure Laterality Date ? DELIVERY ONLY ? CURRENT MEDICATIONS Current Outpatient Medications Medication Sig Dispense Refill ? ferrous sulfate 325 mg (65 mg iron) tablet Take 1 tablet by mouth every other day. 15 tablet 3 ? VITS 5-[id number] ORAL Take by mouth. ? ? ? No current facility-administered medications for this visit. ? ? ALLERGIES: Banana, Latex, Peanut, and Pollen ? PERSONAL HISTORY: SOCIAL HISTORY Social History ? Tobacco Use ? Smoking status: Some Days ? ? Years: 2 ? ? Types: Cigarettes ? ? Last attempt to quit: 09/11/2022 ? ? Years since quittin.5 ? ? Passive exposure: Yes ? Smokeless tobacco: Never ? Tobacco comments: ? ? mom and dad smokes in home Vaping Use ? Vaping Use: Never used Substance Use Topics ? Alcohol use: Not Currently ? ? Comment: Rarely ? Drug use: Never ? FAMILY HISTORY: FAMILY HISTORY FAMILY HISTORY Problem Relation Age of Onset ? Cancer Mother ? ? Hodgkins lymphoma ? Thyroid Mother ? ? hyperthyroidism treated with R131, now hypothyroid ? No Known Problems Father ? ? No Known Problems Brother ? ? Seizures Maternal Grandmother ? ? Heart Maternal Grandmother ? ? rheumatic heart disease ? Cancer Maternal Grandfather ? ? leukemia ? Cancer Paternal Grandfather ? ? tracheal cancer ? Heart Maternal Aunt ? ? heart disease ? Heart Other ? ? MGGF ? No Known Problems Son ? ? ? REVIEW OF SYMPTOMS: GENERAL: denies fevers or chills ENDOCRINOLOGY: has not been on steroids Cardiology : denies palpitations or chest pain Respiratory: denies SOB or cough Hematology: denies history of prolonged bleeding or easy bruising or VTE Allergy: Denies history of personal or family history of allergy to anesthesia ? PHYSICAL EXAMINATION: ? VITALS: Last menstrual period 08/01/2022. ? GENERAL: The patient is well nourished, well hydrated in no acute distress. , The patient is oriented to time, place, and person. NECK: Supple. No lynphadenopathy, normal thyroid, no thyromegaly. LUNGS: Clear to auscultation bilaterally. no wheezes, rhonchi or rales HEART: Regular rate and rhythm, Normal heart sounds, and No murmurs or gallops abd- soft, nontender, gravid ext- 1+ jonatan,a ? IMPRESSION: Estimated Date of Delivery: 05/08/23 ? PLAN: The risks/benefits/alternatives and personal involved for the planned c- section and tubal sterilization were reviewed with the patient. Her questions were answered to her satisfaction and she desires to proceed. Consent was signed. I reviewed with her postop instructions and expectations. ? ? I have reviewed and updated past medical and surgical history, medications and allergies Assessment & Plan Assessment/Plan (1) Previous delivery affecting : (2) Sterilization:
[2023-05-01] VITALS (44 sets, daily range): BP systolic 86–119; BP diastolic 54–82; PULSE 54–116; RESP 10–21; TEMP 36.2–36.8; O2SAT 96–100; BMI 25.5
[2023-05-01] MEDS: Lactated Ringers 1,000 ML 999 ML IV (10:09)
[2023-05-01] MEDS: Acetaminophen 500 MG Tablet 1000 MG PO ×3 (10:22→22:30)
[2023-05-01 10:31] LABS: Absolute Lymphocyte Count 2.73 X10^3/uL (0.83-4.51); Absolute Neutrophil Count 7.7 X10^3/uL (2.0-7.7); Basophil# 0.03 X10^3/uL; Basophil% 0.3 % (0-1); Eosinophil# 0.13 X10^3/uL; Eosinophils% 1.1 % (0-5); Hematocrit 32.9 % (37-47); Hemoglobin 10.7 g/dL (12.0-15.0); Lymphocyte # 2.73 X10^3/ul (0.83-4.51); Mean Corp Hgb Conc 32.5 g/dL (32-36); Mean Corpuscular Hgb 26.7 pg (27.0-32.0); Mean Platelet Vol. 10.5 fl (6.2-12.0); Monocyte# 0.69 X10^3/uL; Monocyte% 6.1 % (0-10); NRBC Flagged by Analyzer 0 % (0-5); Neutrophil # 7.71 X10^3/uL (2.7-7.7); Neutrophil % 67.9 % (47-70); Platelet Count 400 K/mm3 (150-450); RBC Distribution Width CV 14.4 % (11.6-14.6); Red Blood Count 4.01 M/mm3 (4.2-5.4); White Blood Count 11.4 K/mm3 (4.4-11.0)
[2023-05-01] MEDS: Lactated Ringers 1,000 ML 150 ML IV (10:59)
--- NOTE | 2023-05-01 11:06 | EKGRS_ITS ---
Test Reason : Blood Pressure : / mmHG Vent. Rate : 068 BPM Atrial Rate : 068 BPM P-R Int : 144 ms QRS Dur : 074 ms QT Int : 376 ms P-R-T Axes : 028 028 028 degrees QTc Int : 399 ms Normal sinus rhythm with sinus arrhythmia Normal ECG When compared with ECG of 28-OCT-2017 19:40, No significant change was found Confirmed by LAUREEN MORALES, TARYN ([id number]), index editor MALISSA BYRD ([id number]) on 05/04/2023 2:00:51 PM Referred By: Julia Miles Confirmed By:CULLEN GARDUNO MD
[2023-05-01 11:08] LABS: Syphilis Antibodies Non-reactive
[2023-05-01] MEDS: Sodium Citrate/Citric Acid 30 ML UDC PO (11:46)
[2023-05-01 12:31] LABS: Anion Gap 4 (5-15); BUN 3 mg/dL (7-18); BUN/Creat Ratio 5.6 RATIO (10-20); Chloride 109 mmol/L (98-107); Creatinine, Serum 0.54 mg/dL (0.55-1.02); EST Glomerular Filtration Rate 147 mL/min (>60); Est Glom Filt Rate - Afr Amer 178 mL/min (>60); Glucose 60 mg/dL (74-106); Magnesium 1.7 mg/dL (1.6-2.6); Potassium 3.5 mmol/L (3.5-5.1); Sodium Level 138 mmol/L (136-145)
[2023-05-01] MEDS: Cefazolin 2 GM in 0.9% Normal Saline (100mL Bag) 100 ML IV (12:50)
--- NOTE | 2023-05-01 13:00 | FALS_PTH ---
PATIENT: NAZIA KEYS LOC: [facility] U#:[id number] AGE/SX: 23/F ROOM: WP007 RE05/01/[address]: Dr. Julia Miles MD : 2000 BED: 1 DIS: 05/04/2023 SPEC #: [id number] RECD: 05/04/23 08:19 STATUS: YELENA JACQUES #: [id number] GUIDO: 05/01/23 13:[address]: Julia Miles DEPT: SURGICAL PATHOLOGY RECD BY: Antonietta Elizalde ENTERED: 05/04/23 08:19 SP TYPE: FALL TUBES OTHR DR: No Primary Care Phys Tissues: Fallopian tube Procedures: Surgery Specimen Level II HEADER OPERATION: Tubal ligation PRE-OP DIAGNOSIS: Sterilization TISSUE SUBMITTED: Fallopian tubes, suture in right tube MICROSCOPIC DIAGNOSIS Bilateral fallopian tubes, salpingectomy: Bilateral fallopian tubes, no pathologic diagnosis. KAYY:jazmine 05/05/2023 MICROSCOPIC DESCRIPTION Slides are reviewed. GROSS DESCRIPTION Received in fixative is one container labeled with the patient's name and designated bilateral fallopian tubes. The specimen consists of two fallopian tubes with an average length of 6.6 cm and has an average diameter of 1.2 cm. Both fallopian tubes have normal fimbriated ends. No mass lesions are identified. Upfitter sections are submitted in two cassettes as follows: 1 - right fallopian tube with suture, 2??left fallopian tube. / AM:jazmine 05/04/2023 TC:4 CPT: 16842 x2
--- NOTE | 2023-05-01 13:39 | EX.PCM.OBRPT ---
Assessment & Plan (1) Sterilization: (2) Previous delivery affecting : Maternal Data Information Final MARVIN: 05/08/23 Gestational age: 39 0/7 Details Operative Information Date of Procedure: 05/01/23 Pre-Operative Diagnosis: 39-week gestation, previous section, sterilization request Post-Operative Diagnosis: Same Indications for : Repeat Elective Classification: Scheduled Procedure Type: low transverse (With bilateral salpingectomy) licensed acupuncturist #1: Ana Sapp Type of Anesthesia: Spinal Anesthesiologist: Tk Bautista Special Medications: durmorph Antibiotic Given: Ancef 2 grams IV x1 Drain: Brito to straight drain Estimated Blood Loss: 900 Fluids Replaced: 900 Procedure Start Time: 12:56 Procedure Stop Time: 13:30 Time of Delivery: 13:00 Findings Description of Procedure: The patient was taken to the operating room. She was prepped and draped in the dorsal supine position with a leftward tilt. A Pfannenstiel skin incision was made approximately 2 cm above the symphysis pubis and carried through to underlying layer fascia with the scalpel. The fascia was incised incised in the midline and extended laterally with the Orourke scissors. The fascia was dissected off the rectus muscles with blunt and sharp dissection. The rectus muscles were in the midline and the peritoneum was entered bluntly. The peritoneal incision was stretched and the bladder blade was placed. The uterine incision was made in a low transverse fashion with the scalpel and extended superiorly and inferiorly with blunt dissection. The amniotic membranes were ruptured bluntly and clear amniotic fluid returned. The infant's head was brought to the incision in the flexed position but did not engage well against the lower uterine segment. The Kiwi vacuum was then placed on the flexion point and vacuum created 550 mmHg. With 1 pull the head delivered easily and the vacuum was removed. There were no pop offs. The remainder of the infant was delivered with gentle traction and fundal pressure in the standard fashion. The mouth and nares were bulb suctioned. The cord was clamped and cut as the was stimulated. Cord clamping was delayed 30 seconds. The infant was handed off to the waiting nursing staff. The placenta was delivered with fundal massage and gentle traction in the standard fashion. The uterus was exteriorized and cleared of all clots and debris. The cervix was dilated with a ring forcep. The uterine incision was closed with #1 Vicryl in a running locked fashion. A second layer of the same suture was used in an imbricating fashion. The incision was examined and was found to be hemostatic. Some hemoblast was placed over the lower uterine segment that was oozing. Left fallopian tube was identified and followed out to the fimbriated end. Linwood clamps were used to tent the fallopian tube out. The LigaSure device was used to clamp, seal and transect the antimesenteric portion of the tube. The tube was then amputated from the fundus of the uterus with the same device. Excellent hemostasis was noted. Same procedure was performed on the right side. The uterus was placed back into the peritoneal cavity and some bleeding started along the right antimesenteric portion of the tube. The LigaSure device was used to clamp seal and obtain hemostasis in this area. And hemostasis was again confirmed. The rectus muscles were examined and any bleeding was Bovie cauterized. The parietal peritoneum and rectus muscles were closed en bloc with an 0 Vicryl running suture. The rectus fascia was examined and any bleeding was Bovie cauterized and the rectus fascia was closed with 1 Vicryl suture in a running standard fashion. The subcutaneous tissue was examining and any bleeding was Bovie cauterized. The subcutaneous tissue was reapproximated with 3-0 Vicryl suture. The skin was closed in a subcuticular fashion by me.. I performed the entire procedure with assistance. Dr. Sapp provided tissue retraction and manipulation and assistance with delivery. No qualified residents were available.. All sponge, lap, and needle counts were correct. The patient was taken to her room for recovery in a stable condition. Presentation: Positive for Vertex Amniotic Membrane Rupture Type: Artificial Amniotic Fluid Description: Clear Placental Delivery Description: Expressed Placenta Disposition: [facility] Specimen(s) Sent to Pathology: bilateral fallopian Cord Vessel Description: 3 Vessels Cord Entanglement: None Nuchal Cord Compression: Without compression A Gender: Female (Violeta) (1 minute): 8 (5 minute): 9 Delayed Cord Clamping: Yes Complications Complications: none
[2023-05-01] MEDS: Oxytocin 15 Units/NS 250ml 15 UNITS/250 ML IV.SOLN 83 UNITS IV (13:45)
[2023-05-01] MEDS: Ketorolac 30 MG/ML Syringe IV ×2 (14:26→20:32)
--- NOTE | 2023-05-01 14:44 | NURSING ---
hemoblast lot number [id number] exp. 2025-07-30
[2023-05-01 15:49] LABS: Pathology Specimen OB SEE PATHOLOGY REPORT
[2023-05-01] MEDS: Lactated Ringers 1,000 ML 100 ML IV (16:36)
--- NOTE | 2023-05-01 16:47 | CASEMGMT ---
Social Work Assessment Labor and Delivery Unit Patient Address: [address] [place] [address] [place] [address] Phone number: [phone] Date of Referral: 05/01/23 Time of Referral: 1027? Referred By: Julia Miles Date of Intervention: ?05/01/23? Time of Intervention:? 1545 Reason for Referral:? mental health Sw completed chart review and acknowledges social work consult entered due to maternal concerns of mental health. Sw also notes prior social work involvement with MALGORZATA's last delivery in 2018 with social worker [facility]. Sw presented to bedside and introduced self to mother of baby (MOB- Tran) and alleged father of baby (FOB- Pardeep). Sw explained reason for sw involvement and completed psychosocial assessment. FOB present for majority of assessment, however Sw did ask him to step out of the room momentarily so MOB could complete [place] Depression Scale. History obtained from: medical records, MOB and FOB Household composition: MALGORZATA reports that she lives independently in [facility]. MOB states that when she is discharged she and baby will be moving in with her neighbors (Ford and Marianela) temporarily so they can help care for her and baby while she is healing from her . Sw asked FOB where he resides, he reports that he lives with his parents. Patient's parent/guardian status:? ?MOB states that she and FOB met while both attending the [employer]. MOB states that she always had a crush on him because he was cute. FOB reports that he and MOB have been off and on for about two years. While meeting with MOB privately, she denies any concerns of abuse including domestic violence or intimate partner violence. MOB identifies ANDRIY as a person of support. Medical History: ?MALGORZATA is 23 year old female who is 2, para 1- now 2 following labor and delivery of . MALGORZATA received care with [facility] during . MOB states that FOB mother would help her get to those appointments because she does not drive. MALGORZATA presented to hospital for scheduled repeat on 05/01/23 at 39 weeks gestation. Baby girl, named Violeta Ellis, was born weighing 6lb 2oz and her apgars unknown at this time. MOB states that she is not sure how she plans on feeding baby at this time, considering doing both: bottle feeds and breast feeding. MOB was observed holding baby in arms during assessment. Baby would cry from time to time and MOB would soothe her appropriately. Sw asked MOB when baby ate last, and MOB could not recall. MOB stated that it was not that long ago after delivery. Sw explained to MOB that her surgery was scheduled for noon, so baby may have eaten around 2. MOB stated that when baby first ate she was given a bottle. Sw asked MOB if she thinks baby could be hungry, but MOB stated it is not time for baby to eat yet. * While completing chart review, sw noted that prior concerns after MOB had her first baby included MOB not feeding baby regularly- often times 6 hours had gone in between feeds, even after being prompted by nursing staff. Concerns also noted in past were that MOB was found multiple times to be sleeping with baby in bed with her, again ongoing education had been provided. Educational Status:? MOB states that she graduated from high school. MOB reports to being on an IEP, but cannot recall at this time what it was for and does not believe that it was all that helpful. FOB states that he graduated high school, and attended some college but did not get a degree. Financial Status: MOB is not employed at this time. FOB states that he works time piece repairer in a factory. * Sw asked MOB when she worked last. MOB states that she worked at [employer] last July or August. MOB reports to actively be looking for employment, but does not have the experience that a lot of places are looking for. * Sw asked MOB how she buys food and other necessities, if she is not working and is not obtaining any income. MOB looked to FOB. FOB stated that he helps MOB get food. Supplies:?? MOB states that she has obtained all necessary baby supplies for baby, including: car seat, safe sleep space, clothes, diapers and wipes. Childcare/Caregiver(s):? MOB states that she will be the primary caregiver to baby. Transportation:?? MOB has a permit, but does not have a license. MOB states that she depends on other people to help her get to doctors appointments. FOB states that he has his drivers license and reliable means of transportation. Programs/Agencies Involved: ??MOB states that she is connected to Medicaid for insurance. MOB states that she has not gotten connected to [place]- but planned on doing so. Sw stated that she can provide MOB with paperwork to get connected to [place] prior to discharge. Sw also asked MOB if she has ever applied for SNAP food benefits. MOB denied. Sw explained to MOB that she is eligible for SNAP benefits if she does not have an income, and especially now that she has a dependent. Sw highlighted number and address for [employer] and explained to MOB that she needs to get baby added to her insurance within 30 days, and also needs to apply for food benefits. * Sw asked MOB if she is familiar with [employer]. MOB stated that she remembers them being involved briefly after she had her son. Sw asked MOB if she is receptive to getting connected to them now that baby has been born. MOB said she wants to think about it. ? Children Services/Legal Issues:??? MALGORZATA was previously [facility] with [facility] following the of her son, Ok Ya Jr. in 2018. A referral was made prior to his discharge from the hospital after labor and delivery. At that time MOB and baby were to be residing with maternal grandmother. MOB reports at this time that her son now resides with his father, Ok Ya, who has full custody of him. Sw asked MOB how long Children Services was involved at that time. MOB stated she could not remember, but thinks it was roughly 3-4 months. * Sw contacted [facility] and informed them of concerns sw has with MOB at this time. Sw explained that MALGORZATA has lack of social/ family supports. MOB does not have an income or access/ ability to obtain food on her own. Liza stated that MOB appears to be extremely developmentally and cognitively delayed with limited resources and supports. Liza spoke to hotline screener, Penny, who stated that a worker would be coming to hospital on this date to meet with MOB and work on formulating a discharge plan. Behavioral Health Issues: ??Mental Health History:???ELIZABETHAjay staets that he has a history of depression. FOAjay also disclosed that he had a suicide attempt in 2016. FOB states that at that time he had several friends talk him out of it. FOB denies being connected to any mental health resources or supports at this time. MOB states that she has been diagnosed with ADHD. MOB states that she has not been officially diagnosed with anxiety or depression, but she feels as though she has struggled with those in the past. 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 MALGORZATA denies doing this for quite some time. No cuts/ abrasions noted on her face at time of assessment. Substance Use History:?Parents deny current or history of substance use. ? Family History:?MALGORZATA reports that her father was an alcoholic when she was younger but is sober now. ? Drug Screens: ?NO drug screens observed for current admission. ? Family/Social Stressors:? Current stressors at this time include: MALGORZATA does not have any family or friends who are supportive and able to help her from her home. MOB is moving in with a couple that resides in the same apartment complex as her, ANDRIY reports to residing with his parents and being able to help MOB from time to time. Status of their current relationship unknown although MALGORZATA refers to him as a support. MALGORZATA does not have WIC set up or access to food resources/ supports, does not have SNAP. MALGORZATA and ANDRIY have mental health history, and prior involvement with [facility] which resulted in the loss of custody of MOB son who is now 5 years old. MALGORZATA is unemployed. It is apparent that MALGORZATA struggles with a cognitive or developmental disability. Concerns at this time that MALGORZATA may be being trafficked, however when discussing this with her she denies. Support Systems: ANDRIY states that his parents are supportive, and have helped MOB with transportation. MOB states that FOAjay is her biggest support. When asking MOB about her family and availability to help her. MOB states that she has not told them that she is . MOB states that her mother during her , and she did not think the timing was right to inform people that she was going to have a baby. MOB states that now that baby has been born she does have intentions of telling people. * While meeting with MOB and completing assessment, alleged neighbor, Ford, entered room. Sw asked him who he was and he introduced himself, and stated that he is MOB's support. Liza introduced self and asked Ford to wait outside of the room as sw was completing assessment at this time. Ford stated that he just came to check on MOB, and will leave. Ford stated that his day has been busy because he just started his own [employer] today. Ford stated that he is going to be extremely busy managing his company. Sw not sure who MOB plans on helping and caring for her post discharge if Ford is stating that he is too busy. Depression/Shaken Baby/Safe Sleeping:? Sw educated parents on signs and symptoms of baby blues and depression and anxiety. MOB expressed understanding. MOB completed Glen[place] Depression scale and her score was a 6. Sw provided education and support. Sw educated and emphasized importance of safe sleep and shaken baby syndrome. Parents expressed understanding. ASSESSMENT:? MOB and baby admitted following labor and delivery of . Many social concerns at this time due to MOB mental health, limited cognitive ability, potentially unsafe home environment due to limited resources and supports in place. Referral made to children services who will be presenting to hospital to meet with MOB at this time. While completing assessment MOB made minimal eye contact with Sw. MOB would smile during times where smiling did not make sense. A lot of MOB answer's to psychosocial questions were I don't know or I can't remember. Unclear as to whether or not MOB is in a situation where she is being trafficked- although she denies there are indicators that may show otherwise. PLAN:? Sw informed medical office secretary, NICU doctorJustyn Perez, and bedside RN of social work concerns and that [facility] would be presenting to bedside on this date. Prior to discharge please discuss discharge plan with social work. Romeo Vigil, CREW DIRECTOR, SSRS REPORT DEVELOPER
--- NOTE | 2023-05-01 17:53 | NURSING ---
1730 childrens services into see pt
--- NOTE | 2023-05-01 21:51 | NURSING ---
Call placed to Dr Sapp, informed md of not documentation noted on pt's output since c/s this afternoon, 100cc of concentrated urine noted in Brito since this RN came on shift. Pt had drank 2 pitchers of water. Pt's bp's run on the lower side 80-90/60's, pt denies any lightheaded or dizziness. Pt in unable to fully move or lift legs and has not been out of bed yet. Md states to give 500cc bolus and wait 2 hours to see if output increases. Encourage pt to move and work on getting up lola.
[2023-05-01] MEDS: SimETHICONE 80 MG Chewable Tablet PO (21:57)
[2023-05-01] MEDS: LACTATED RINGERS 500 ML 999 ML IV (21:57)
[2023-05-02 01:11] VITALS: BP 91/59; PULSE 64; RESP 16; TEMP 36.8; O2SAT 99
--- NOTE | 2023-05-02 01:12 | NURSING ---
This RN in room helping pt back to bed from chair, bay just finished a feed of formula and had been burped by mob. Baby laid in bassinet, baby began spitting up and choking/gagging. This RN noted that both fob and mob did not respond to this at all. FOB did not look up from phone and mob just laid in bed and watched baby. No action or concern was taken from either parent. This RN then went over and assisted baby and informed parents of baby spitting up and needing to be picked up and assisted in this situation. Parents just watched this RN.
[2023-05-02] MEDS: Lactated Ringers 1,000 ML 100 ML IV (01:55)
[2023-05-02] MEDS: Ketorolac 30 MG/ML Syringe IV ×2 (02:48→08:32)
[2023-05-02] MEDS: Rho(D) Immune Globulin 300 MCG (1500 Unit) Syringe IV (02:50)
[2023-05-02] MEDS: 0.9% Saline Lock 10 ML Syringe IV ×3 (02:57→08:32)
[2023-05-02 04:42] VITALS: BP 96/58; PULSE 63; RESP 16; TEMP 36.7; O2SAT 99
[2023-05-02] MEDS: Acetaminophen 500 MG Tablet 1000 MG PO ×4 (04:42→22:34)
[2023-05-02 05:00] LABS: Hematocrit 18.1 % (37-47); Hemoglobin 5.7 g/dL (12.0-15.0); Mean Corp Hgb Conc 31.5 g/dL (32-36); Mean Corpuscular Hgb 26.3 pg (27.0-32.0); Mean Corpuscular Volume 83.4 fL (81-99); Mean Platelet Vol. 10.3 fl (6.2-12.0); POSITIVE COUNT YES; Platelet Count 258 K/mm3 (150-450); RBC Distribution Width CV 14.3 % (11.6-14.6); RBC Distribution Width SD 43.1 fl (35.1-43.9); Red Blood Count 2.17 M/mm3 (4.2-5.4); White Blood Count 17.7 K/mm3 (4.4-11.0)
[2023-05-02 05:37] LABS: Absolute Neutrophil Count 12.6 X10^3/uL (2.0-7.7); Basophil# 0.03 X10^3/uL; Basophil% 0.2 % (0-1); Eosinophils% 0.6 % (0-5); Hematocrit 17.8 % (37-47); Hemoglobin 5.8 g/dL (12.0-15.0); Lymphocyte % 13.3 % (19-41); Mean Corp Hgb Conc 32.6 g/dL (32-36); Mean Corpuscular Volume 82.8 fL (81-99); Mean Platelet Vol. 10.6 fl (6.2-12.0); Monocyte# 1.55 X10^3/uL; Monocyte% 9.3 % (0-10); NRBC Flagged by Analyzer 0 % (0-5); Neutrophil # 12.64 X10^3/uL (2.7-7.7); Neutrophil % 76.1 % (47-70); POSITIVE COUNT YES; POSITIVE DIFFERENTIAL YES; Platelet Count 257 K/mm3 (150-450); RBC Distribution Width CV 14.3 % (11.6-14.6); RBC Distribution Width SD 42.8 fl (35.1-43.9); Red Blood Count 2.15 M/mm3 (4.2-5.4); White Blood Count 16.6 K/mm3 (4.4-11.0)
[2023-05-02 05:40] LABS: Differential Indicated SCAN CRITERIA MET
[2023-05-02] MEDS: Sodium Ferric Gluconat 250 MG in 0.9% Normal Saline 250 ML 135 MG IV (06:29)
--- NOTE | 2023-05-02 06:34 | PN.OBGYN_ITS ---
Subjective Subjective Low Hgb this am. Patient has been up out of bed and denies dizziness. No CP or shortness of breath. Has not had excessive bleeding post c/s. Blood intra-op 900cc. Previous delivery was similar. No excessive bleeding but drop to 6 Hgb. She was not transfused. Discussed possible blood transfusion. She would like to avoid blood transfusion at this time but is agreeable to IV iron. Brito intact with improved urine output. Tolerating PO and pain controlled Objective Data Objective Data Vital Signs: Vital Signs Temp Pulse Resp BP Pulse Ox O2 Del Method 98.0 F 63 16 96/58 L 99 Room Air 05/02/23 04:42 05/02/23 04:42 05/02/23 04:42 05/02/23 04:42 05/02/23 04:42 05/02/23 04:42 Oxygen Delivery Method Room Air Weight: 67.6 kg Body Mass Index (BMI) 25.5 Intake & Output: Intake and Output for Last 24 Hours 04/30/23 05/01/23 05/02/23 23:59 23:59 23:59 Intake Total 1960.43 / 1960.43 931.67 / 931.67 Output Total 1000 / 1000 750 / 750 Balance 960.43 / 960.43 181.67 / 181.67 Lab / Micro Data Attestation: I reviewed the patient's lab results. 05/02/23 05:28 05/01/23 12:07 Labs: Laboratory Results - last 24 hr 05/01/23 10:05: WBC 11.4 H, RBC 4.01 L, Hgb 10.7 L, Hct 32.9 L, MCV 82.0, MCH 26.7 L, MCHC 32.5, RDW Std Deviation 42.0, RDW Coeff of Nick 14.4, Plt Count 400, MPV 10.5, Immature Gran % (Auto) 0.600, Neut % (Auto) 67.9, Lymph % (Auto) 24.0, [place] % (Auto) 6.1, Eos % (Auto) 1.1, Baso % (Auto) 0.3, Absolute Neuts (auto) 7.7, Absolute Lymphs (auto) 2.73, Nucleated RBC % 0, Syphilis Total Ab Non- reactive, Blood Type A NEGATIVE, Antibody Screen POSITIVE, Antibody Identification ANTI-D 05/01/23 12:07: Sodium 138, Potassium 3.5, Chloride 109 H, Carbon Dioxide 25.0, Anion Gap 4 L, BUN 3 L, Creatinine 0.54 L, Estim Creat Clear Calc 150.50, Est GFR (MDRD) Af Amer 178, Est GFR (MDRD) Non-Af 147, BUN/Creatinine Ratio 5.6 L, Glucose 60 L, Calcium 9.0, Magnesium 1.7 05/01/23 16:30: Screen NEGATIVE, Baby's Blood Type A POSITIVE, Baby's DORIAN NEGATIVE 05/02/23 04:50: WBC 17.7 H, RBC 2.17 L, Hgb 5.7 L*, Hct 18.1 L, MCV 83.4, MCH 26.3 L, MCHC 31.5 L, RDW Std Deviation 43.1, RDW Coeff of Nick 14.3, Plt Count 258, MPV 10.3, Diff Path Review June05/02/23 05:28: WBC 16.6 H, RBC 2.15 L, Hgb 5.8 L*, Hct 17.8 L, MCV 82.8, MCH 27 .0, MCHC 32.6, RDW Std Deviation 42.8, RDW Coeff of Nick 14.3, Plt Count 257, MPV 10.6, Immature Gran % (Auto) 0.500, Neut % (Auto) 76.1 H, Lymph % (Auto) 13.3 L, [place] % (Auto) 9.3, Eos % (Auto) 0.6, Baso % (Auto) 0.2, Absolute Neuts (auto) 12 .6 H, Absolute Lymphs (auto) 2.20, Nucleated RBC % 0 Physical Exam Const alert General Appearance: cooperative GI GI Narrative: soft, moderate distention, fundus firm, appropriately tender. Abdominal bandage clean dry and intact Assessment & Plan (1) Anemia of mother in , delivered with condition: PLAN: IV iron with close monitoring or vital signs and bleeding. Recheck Hgb in PM (2) delivery delivered:
[2023-05-02 06:36] LABS: Differential Comment SCANNED
--- NOTE | 2023-05-02 08:10 | CASEMGMT ---
Social Work SW informed that Dayna from [facility] is to be here today at 12pm to meet w/MOB. DIMITRI Toribio
[2023-05-02 08:23] VITALS: BP 100/58; PULSE 65; RESP 16; TEMP 36.5; O2SAT 98
[2023-05-02] MEDS: Senna/Docusate Sodium 1 Tablet PO (10:34)
[2023-05-02] MEDS: Ibuprofen 600 MG Tablet PO ×2 (15:19→21:23)
[2023-05-02 15:21] VITALS: BP 104/68; PULSE 98; RESP 16; TEMP 37; O2SAT 98
--- NOTE | 2023-05-02 16:06 | CASEMGMT ---
Social Work Jonna from [facility] came in to see pt. She had been in yesterday as well. She worked out a plan w/MOB, FOB and FOB's parents. The plan is for the baby and MOB to go stay with FOB and his parents at discharge, and they will help with the care of the baby. oJnna at this time stating mom not able to care for baby on her own. She states there may be a cognitive issue w/MOB. She states ANDRIY Roberto (who is questioning paternity but still willing to have MOB and baby stay w/them) will talk to his boss about changing his schedule, as he works first shift and his parents also work first shift, so that MOB will have support in caring for the baby. Jonna was not in favor of MOB staying with the neighbor Ford. FOB's parents met w/Jonna today. The plan is for Jonna to do a home visit to FOB's parents Thursday at 7:30am, and if the home is deemed appropriate baby and MOB will go home to FOB's parents home on Thursday. MOB's RN aware as is rag inspector. SW will follow up on Thursday. DIMITRI Toribio
--- NOTE | 2023-05-02 17:42 | NURSING ---
Support person, Ford Littlejohn, at bedside asking this nurse about safety plan put forth by [facility]. States that he does not want the stroller, diaper bag and other things that he has bought for mom and baby to go to FOB's house. Also states that he does not get along with the FOB. When asked what his relation is to patient, states that he is a neighbor and friend of patient and that they did date at one time. During conversation, he is holding baby and rocking back and forth. Appears to be be agitated an when asked if he is agitated, states he is fine. Security notified of Ford's actions.
[2023-05-02 18:48] LABS: Absolute Lymphocyte Count 2.21 X10^3/uL (0.83-4.51); Absolute Neutrophil Count 15.1 X10^3/uL (2.0-7.7); Basophil# 0.03 X10^3/uL; Basophil% 0.2 % (0-1); Eosinophil# 0.07 X10^3/uL; Eosinophils% 0.4 % (0-5); Hematocrit 18.5 % (37-47); Hemoglobin 6.2 g/dL (12.0-15.0); Lymphocyte # 2.21 X10^3/ul (0.83-4.51); Lymphocyte % 11.4 % (19-41); Mean Corp Hgb Conc 33.5 g/dL (32-36); Mean Corpuscular Hgb 27.6 pg (27.0-32.0); Mean Corpuscular Volume 82.2 fL (81-99); Mean Platelet Vol. 10.6 fl (6.2-12.0); Monocyte# 1.84 X10^3/uL; Monocyte% 9.5 % (0-10); NRBC Flagged by Analyzer 0 % (0-5); Neutrophil # 15.13 X10^3/uL (2.7-7.7); Neutrophil % 77.7 % (47-70); POSITIVE DIFFERENTIAL YES; Platelet Count 285 K/mm3 (150-450); RBC Distribution Width CV 14.6 % (11.6-14.6); RBC Distribution Width SD 42.9 fl (35.1-43.9); Red Blood Count 2.25 M/mm3 (4.2-5.4); White Blood Count 19.4 K/mm3 (4.4-11.0)
[2023-05-02 18:50] LABS: Differential Indicated SCAN CRITERIA MET
[2023-05-02 19:50] VITALS: BP 106/73; PULSE 90; RESP 18; TEMP 36.9; O2SAT 99
[2023-05-03 01:10] VITALS: BP 87/56; PULSE 99; RESP 16; TEMP 36.7; O2SAT 97
[2023-05-03 01:15] VITALS: BP 108/61
[2023-05-03] MEDS: Ibuprofen 600 MG Tablet PO ×4 (03:30→21:13)
[2023-05-03] MEDS: Acetaminophen 500 MG Tablet 1000 MG PO ×4 (04:47→23:01)
[2023-05-03 07:39] VITALS: BP 102/66; PULSE 88; RESP 16; TEMP 36.4; O2SAT 98
[2023-05-03] MEDS: Senna/Docusate Sodium 1 Tablet PO (09:41)
--- NOTE | 2023-05-03 09:50 | PCM.PN.OB ---
Subjective Subjective Moving better. Pain managed. Bottle feeding now. CPS to evaluate living situation tomorrow. Hgb improved after IV iron. Denies dizziness with ambulation. Vital WNW Objective Data Objective Data Vital Signs: Vital Signs Temp Pulse Resp BP Pulse Ox O2 Del Method 97.6 F L 88 16 102/66 98 Room Air 05/03/23 07:39 05/03/23 07:39 05/03/23 07:39 05/03/23 07:39 05/03/23 07:39 05/03/23 07:39 Oxygen Delivery Method Room Air Weight: 67.6 kg Body Mass Index (BMI) 25.5 Intake & Output: Intake and Output for Last 24 Hours 05/01/23 05/02/23 05/03/23 23:59 23:59 23:59 Intake Total 1960.43 / 1960.43 1975.67 / 1975. Output Total 1000 / 1000 2650 / 2650 Balance 960.43 / 960.43 -673.33 / -673.33 Lab / Micro Data Attestation: I reviewed the patient's lab results. 05/02/23 18:15 05/01/23 12:07 Labs: Laboratory Results - last 24 hr 05/02/23 18:15: WBC 19.4 H, RBC 2.25 L, Hgb 6.2 L, Hct 18.5 L, MCV 82.2, MCH 27.6, MCHC 33.5, RDW Std Deviation 42.9, RDW Coeff of Nick 14.6, Plt Count 285, MPV 10.6, Immature Gran % (Auto) 0.800, Neut % (Auto) 77.7 H, Lymph % (Auto) 11.4 L, [place] % (Auto) 9.5, Eos % (Auto) 0.4, Baso % (Auto) 0.2, Absolute Neuts (auto) 15.1 H, Absolute Lymphs (auto) 2.21, Nucleated RBC % 0, Differential Comment , Diff Path Review May foll Physical Exam Const alert General Appearance: cooperative GI GI Narrative: soft, moderate distention, fundus firm, appropriately tender. Abdominal bandage clean dry and intact Assessment & Plan (1) delivery delivered: (2) Anemia of mother in , delivered with condition: (3) Sterilization:
[2023-05-03 14:48] VITALS: BP 106/65; PULSE 92; RESP 16; TEMP 36.7; O2SAT 100
[2023-05-03 20:13] VITALS: BP 100/60; PULSE 105; RESP 16; TEMP 37.1; O2SAT 98
[2023-05-04 01:47] VITALS: BP 97/63; PULSE 87; RESP 16; TEMP 36.6
[2023-05-04] MEDS: Ibuprofen 600 MG Tablet PO ×3 (03:14→15:35)
[2023-05-04] MEDS: Acetaminophen 500 MG Tablet 1000 MG PO ×3 (05:23→17:02)
--- NOTE | 2023-05-04 06:58 | PN.OBGYN_ITS ---
Subjective Subjective Feels good. Pain manageable. Bottle feeding. Minimal bleeding. D/c today. Planning to go to [place] with FOB parents Objective Data Objective Data Vital Signs: Vital Signs Temp Pulse Resp BP Pulse Ox O2 Del Method 97.9 F 87 16 97/63 98 Room Air 05/04/23 01:47 05/04/23 01:47 05/04/23 01:47 05/04/23 01:47 05/03/23 20:13 05/04/23 01:47 Oxygen Delivery Method Room Air Weight: 67.6 kg Body Mass Index (BMI) 25.5 Intake & Output: Intake and Output for Last 24 Hours 05/02/23 05/03/23 05/04/23 23:59 23:59 23:59 Intake Total 1976.67 / 1976.67 Output Total 2650 / 2650 Balance -673.33 / -673.33 Lab / Micro Data Attestation: I reviewed the patient's lab results. 05/02/23 18:15 05/01/23 12:07 Physical Exam Const alert General Appearance: cooperative GI GI Narrative: soft, moderate distention, fundus firm, appropriately tender. Abdominal bandage clean dry and intact Assessment & Plan (1) Previous delivery affecting : (2) Sterilization: (3) delivery delivered: PLAN: D/c home with Motrin/tylenol (4) Anemia of mother in , delivered with condition: PLAN: S/p IV iron, Rx
--- NOTE | 2023-05-04 07:07 | PCM.DC.SUM ---
Providers Date of Admission: 05/01/23 Date of Discharge: 05/04/23 Primary Care Physician: Yvrose Primary Care Phys Reason For Visit: REPEAT Diagnosis Discharge Diagnosis (1) Previous delivery affecting : Status: Acute Code(s): O34.219 - Maternal care for unspecified type scar from previous delivery (2) Sterilization: Status: Acute Code(s): Z30.2 - Encounter for sterilization (3) delivery delivered: Status: Acute Code(s): O82 - Encounter for delivery without indication Plan: D/c home with Motrin/tylenol (4) Anemia of mother in , delivered with condition: Status: Acute Code(s): O99.03 - Anemia complicating the puerperium Plan: S/p IV iron, Rx Medications at Discharge Home Medications ferrous sulfate 325 mg (65 mg iron) tablet (FeroSul) 325 mg PO DAILY anemia 05/01/23 acetaminophen 500 mg tablet 1,000 mg (2 x 500 mg) PO Q6H #30 tabs 05/04/23 ferrous sulfate 325 mg (65 mg iron) tablet (FeroSul) 325 mg PO DAILY #30 tabs 05/04/23 ibuprofen 600 mg tablet 600 mg PO Q6H #30 tabs 05/04/23 Hospital Course Operations section (with sterilization) Summary of Care Provided Minutes Spent on Discharge: 24 Hospital Course: Scheduled repeat with tubal. Uncomplicated delivery. Normal lochia, however Hgb dropped to 5.7 from 10.7 post . Declined blood transfusion. Asymptomatic. Did receive IV iron. Attempted breast feeding however did switch to bottle. Physical Exam Const alert General Appearance: cooperative GI GI Narrative: soft, moderate distention, fundus firm, appropriately tender. Abdominal bandage clean dry and intact Weight / BMI Weight Weight: 67.6 kg Body Mass Index (BMI) 25.5 ABG / Lab / Microbiology Data 05/02/23 18:15 05/01/23 12:07 D/C Instructions Discharge Diet: No restrictions May resume sexual activity in: 4-6 weeks Lifting Restrictions: 20 pounds Additional Activity Instructions: Nothing in the vagina for 4-6 weeks. You may return to work/school in 6 weeks. Call your doctor if your incision/area has: Continuous Slow Oozing, Sudden Increased Bleeding, Increased Pain/ Swelling, Increased Redness and Foul Smelling Discharge Call your doctor if you observe: Fever of 101 or Higher and Using more than 1 pad per hour (for 2 hours) Suture Line Care: Avoid Pulling/Pushing and Avoid Pinching/Bending Cleanse incision/area with: Keep Dressing Clean & Dry Please Follow Up With: Julia Miles MD When: Call to make an appointment for an incision check in 1-2 [phone]. You will need a post check in 6 weeks. Meaningful Use Info Meaningful Use Diagnoses (Choose all that apply): None applicable Discharge Plan Admission Admit Date/Time: 05/01/23 09:35 Primary Reason for Your Visit: Scheduled Attending Provider: Julia Miles Primary Care Provider: Care PhysicianYvrose Primary Instructions Patient Instructions: Section Dc Discharge Orders/Prescriptions Prescriptions: New acetaminophen 500 mg Tablet 1,000 mg PO Q6H Qty: 30 1RF ibuprofen 600 mg Tablet 600 mg PO Q6H Qty: 30 1RF ferrous sulfate [FeroSul] 325 mg (65 mg iron) Tablet 325 mg PO DAILY Qty: 30 1RF Continued ferrous sulfate [FeroSul] 325 mg (65 mg iron) tablet 325 mg PO DAILY Patient Comments: Take 1 tablet by mouth every other day. Referrals / Follow Up: Care Physician,Yvrose Primary [Primary Care Provider] - Disposition Disposition (needs filled in before D/C Order can be placed): Home, Self Care
[2023-05-04 07:45] VITALS: BP 102/69; PULSE 74; RESP 16; TEMP 36.8; O2SAT 98
[2023-05-04] MEDS: Senna/Docusate Sodium 1 Tablet PO (08:52)
[2023-05-04] MEDS: Ferrous Sulfate 325 MG Tablet PO (08:53)
[2023-05-04 13:00] LABS: Pathologist Review Reviewed
[2023-05-04 13:00] LABS: Pathologist Review Reviewed
[2023-05-04 13:01] LABS: Pathologist Review Reviewed
[2023-05-04 13:30] VITALS: BP 101/75; PULSE 78; RESP 16; TEMP 36.6; O2SAT 99
--- NOTE | 2023-05-04 14:26 | NURSING ---
This RN sat with patient and reviewed formula feeding book along with homegoing teaching. Pt. able to verbalize instructions back to RN regarding self care, baby care and feeding, as well as bottle care and formula preparation. She was able to verbalize when baby is next due to eat. Assisted with finding phone number to set up material cutter appointment.
--- NOTE | 2023-05-04 15:00 | CASEMGMT ---
Social Work Spoke with Dayna Jonna at [facility] ([phone], extension [phone]). Updated Dayna mother of baby (MOB) infant still in the hospital. Dayna also able to confirm safety plan set for the MOB and to go to the reported father of baby's (Pardeep Cade) parental home/infant's paternal grandparents at discharge. Paternal grandparents to pick MOB and up after the grandmother gets off of work. Reviewed chart and relayed to Dayna documentation by nursing from the weekend indicating that MOB and the reported father of baby were not responsive to the baby when baby gagging in the crib, with the documentation indicating the nurse addressing the care of baby and informing the parents that the baby needed to be attended to. Also noted in additional documentation that MOB's neighbor/friend Ford did have security updated about Ford having some appearing agitation while on the labor and delivery unit. This medical writer met with MOB in room, checked in on discharge planning. MOB reports understanding and agreement to go to the infant's grandparents home at discharge. MOB denies any safety concerns with presented plan. Reviewed resources for home-going and educated to help me grow and early [facility]. MOB signed early [facility] referral form for additional services and support. MOB reports to be uncertain of address will be going to stay at. Spoke with MOB's nurse today, and nurse reviewing infant feeding prior to home-going. Confirmed with nursing the safety plan set for later today. No other services requested or indicated from hospital standpoint. Plan: MOB and infant discharging home today safety plan set by [facility] services. [facility] will be following in the community. -DIMITRI Paez, WASH OIL PUMP OPERATOR *This note was generated with [email or web address] software. It may contain incorrect words, spelling, and punctuation that were not noted in review of the chart prior to signing*
--- NOTE | 2023-05-05 16:30 | CASEMGMT ---
Social work Faxed early [facility] referral form to confirm to fax at [phone] -DIMITRI Paez, GROUND OPERATIONS SUPERVISOR *This note was generated with [employer] software. It may contain incorrect words, spelling, and punctuation that were not noted in review of the chart prior to signing*
--- NOTE | 2023-06-09 11:53 | NURSING ---
Updated term from 0 to 1 to accurately match the history on the record
== END 2023-05-04 17:30 | disposition home or self-care (01) | DRG 539 ==
PROVIDERS: Anesthesiology; Obstetrics & Gynecology; Admitting Provider Obstetrics & Gynecology; Referring Provider Obstetrics & Gynecology; Visit Provider Obstetrics & Gynecology
PROC: 10D00Z1 Extraction of Products of Conception, Low, Open Approach (ICD-10-PCS; CPT 59514; principal; 2023-05-01 11:45)
DX: O34.219 Maternal care for unspecified type scar from previous cesarean delivery (principal); D62 Acute posthemorrhagic anemia; D50.9 Iron deficiency anemia, unspecified; F17.210 Nicotine dependence, cigarettes, uncomplicated; O69.81X0 Labor and delivery complicated by cord around neck, without compression, not applicable or unspecified; O99.02 Anemia complicating childbirth; Z30.2 Encounter for sterilization; O99.334 Smoking (tobacco) complicating childbirth; Z3A.39 39 weeks gestation of pregnancy; Z37.0 Single live birth
CPT/HCPCS: 59050; 80048; 83735; 85025; 85027; 85461; 86780; 86850; 86870; 86900; 86901; 88302; 90384; 93005; 99221; J7050; J7120; A4216; G0378; J2405; J2790; J2791; J2916

== ENCOUNTER 2023-06-09 03:00 | Emergency (ER) | payer MEDICAID, SELFPAY ==
[2023-06-09 03:00] VITALS: BP 114/82; PULSE 65; RESP 18; TEMP 36.2; O2SAT 99; BMI 23.3
--- NOTE | 2023-06-09 03:52 | CT_ITS ---
EXAM: CT ABDOMEN AND PELVIS WITH INTRAVENOUS CONTRAST CLINICAL INDICATION: pelvic pain. and tubal ligation May 05 2023. TECHNIQUE: Helically acquired images were obtained of the abdomen and pelvis with intravenous contrast. This CT exam was performed using one or more of the following dose reduction techniques: automated exposure control, adjustment of the mA and/or kV according to patient size, and/or use of iterative reconstruction technique. CONTRAST: IV 100mL [id number]-370 RADIATION DOSE: CTDIvol = 10.37 mGy, DLP = 334.81 mGy-cm COMPARISON: January 15, 2021 FINDINGS: LOWER THORAX: Unremarkable. Lung bases are clear. No cardiomegaly. No significant pericardial effusion. ABDOMEN: LIVER: Unremarkable. Homogeneous. No focal mass. GALLBLADDER AND BILE DUCTS: Contracted gallbladder filled with peripherally calcified stones of similar size and shape, most are roughly 7 mm. No gallbladder distention or wall edema. No intra- or extrahepatic biliary ductal dilation. PANCREAS: Unremarkable. No focal cystic or solid mass. SPLEEN: Unremarkable. Normal size without focal cystic or solid mass. ADRENALS: Unremarkable. No nodules. KIDNEYS AND URETERS: Unremarkable. Normal renal size and position. No hydronephrosis. STOMACH AND BOWEL: Unremarkable. No stomach or bowel distention. No focal inflammatory change. PELVIS: APPENDIX: Moderate fluid and mild gas in the stomach. Mild gas and fluid in the small bowel. Moderate gas and stool in the redundant sigmoid, mild gas in the rectum. Thick-walled appearance of the rectum, possibly due to incomplete distention. At least part of appendix is seen, it contains gas in the proximal lumen on coronal images 42 through 48, mid to distal appendix contains mild fluid and measures roughly 5.5 mm at its midportion and roughly 7.6 mm distally. BLADDER: Thick-walled hypodense mass between the urinary bladder and the uterus on sagittal images. This inferiorly displaces the dome of the bladder. Roughly 5.9 cm x 4.7 cm x 4.5 cm. Multiple separate gas bubbles between the anterior bladder and the lower pelvic rectus sheath, proximal to the insertion on the pubic symphysis. REPRODUCTIVE: Separate low attenuation suspected to be ovarian follicle left 2.2 cm x 2.2 cm x 2.3 cm on the right. ABDOMEN and PELVIS: INTRAPERITONEAL SPACE: Mild fluid in the pelvis. No free air. BONES/JOINTS: Unremarkable. No suspicious lytic or blastic abnormality. SOFT TISSUES: Recent , minimal body wall soft tissue stranding. No discrete abdominal or pelvic wall hernia. No incisional fluid collection. VASCULATURE: Unremarkable. Abdominal aorta is non-dilated. LYMPH NODES: Unremarkable. No enlarged lymph nodes. CT/Abdomen/Pelvis W IV Cont ONLY IMPRESSION: 1. Thick-walled hypodense mass between what appears to be incision in the anterior uterus at the lower uterine segment and the bladder dome with mass effect on the bladder, 5.9 cm maximum diameter. Apparently liquefied hematoma extending at least slightly into lower uterine segment incision. This does not contain gas bubbles. Not obviously infected hematoma-abscess but correlate with feverleukocytosis. 2. Small gas bubbles superior to the pubic symphysis and anterior to the bladder, multifocal, presumably postoperative. 3. Mild intrapelvic fluid. 4. Separate 2.3 cm suspected right ovarian follicle. 5. Mildly thick-walled appearance of the rectum. 6. Slightly prominent appearance of the mid to distal appendix. Not convincing for appendicitis. 7. Cholelithiasis. Contracted gallbladder. N.B. : The above Results were Read Back by Myra Horn MD to Elan Santos DO, and understanding confirmed on 06/09/2023 06:06:55 (ET). Electronically Signed: Myra Horn MD at 6:03 EDT ,
[2023-06-09] MEDS: Ketorolac 30 MG/ML Syringe IV (04:09)
[2023-06-09 04:18] LABS: Absolute Lymphocyte Count 1.48 X10^3/uL (0.83-4.51); Absolute Neutrophil Count 10.4 X10^3/uL (2.0-7.7); Basophil# 0.04 X10^3/uL; Basophil% 0.3 % (0-1); Eosinophil# 0.19 X10^3/uL; Eosinophils% 1.5 % (0-5); Hematocrit 36.9 % (37-47); Hemoglobin 11.3 g/dL (12.0-15.0); Lymphocyte # 1.48 X10^3/ul (0.83-4.51); Lymphocyte % 11.5 % (19-41); Mean Corp Hgb Conc 30.6 g/dL (32-36); Mean Corpuscular Hgb 26.3 pg (27.0-32.0); Mean Corpuscular Volume 85.8 fL (81-99); Mean Platelet Vol. 9.6 fl (6.2-12.0); Monocyte# 0.75 X10^3/uL; Monocyte% 5.8 % (0-10); NRBC Flagged by Analyzer 0 % (0-5); Neutrophil # 10.42 X10^3/uL (2.7-7.7); Neutrophil % 80.6 % (47-70); Platelet Count 315 K/mm3 (150-450); RBC Distribution Width CV 16.9 % (11.6-14.6); RBC Distribution Width SD 53.1 fl (35.1-43.9); White Blood Count 12.9 K/mm3 (4.4-11.0)
[2023-06-09 04:33] LABS: Internal QC Validated? YES +Cl - CLEAR BKGD; Pregnancy, Serum, hCG Quali. NEGATIVE Negative
[2023-06-09 04:35] LABS: AST(SGOT) 13 U/L (15-37); Alanine Aminotransfer ALT/SGPT 18 U/L (13-56); Albumin, Serum 3.6 g/dL (3.2-5.0); Alkaline Phosphatase 41 U/L (45-117); Anion Gap 6 (5-15); BUN 12 mg/dL (7-18); BUN/Creat Ratio 15.1 RATIO (10-20); Bilirubin, Direct 0.12 mg/dL (0.00-0.30); Calcium,Total 8.7 mg/dL (8.5-10.1); Chloride 107 mmol/L (98-107); EST Glomerular Filtration Rate 94 mL/min (>60); Est Glom Filt Rate - Afr Amer 113 mL/min (>60); Estimated Creatinine Clearance 92.83 ml/min; Globulin 3.4 g/dL (2.2-4.2); Glucose 91 mg/dL (74-106); Lipase 36 U/L (13-75); Potassium 3.8 mmol/L (3.5-5.1); Sodium Level 138 mmol/L (136-145)
--- NOTE | 2023-06-09 04:38 | EX.ED.DYSGE1 ---
HPI History of Present Illness Chief Complaint: Abd Pain Informant: patient and spouse/S.O. Narrative Narrative: 23-year-old female presenting to the emergency room with chief complaint of pelvic pain. Patient states that around 0030 hrs. tonight she got up to feed her when she developed a sharp burning-like pain near her incision. She has had prior and has not felt this before. She notes that she gave approximately 1 month ago (zero 03/2023). She states it was rather uneventful delivery and has been doing well since. She is not breast-feeding. No reported fevers. No urinary symptoms. No flank pain. She sees [facility] obstetrics/gynecology. [facility] Medical History Depression Limited alf Medications ferrous sulfate 325 mg (65 mg iron) tablet (FeroSul) 325 mg PO DAILY anemia 05/01/23 [History Last Taken 04/29/23 09:00] acetaminophen 500 mg tablet 1,000 mg (2 x 500 mg) PO Q6H #30 tabs 05/04/23 [Rx Last Taken Unknown] ferrous sulfate 325 mg (65 mg iron) tablet (FeroSul) 325 mg PO DAILY #30 tabs 05/04/23 [Rx Last Taken Unknown] ibuprofen 600 mg tablet 600 mg PO Q6H #30 tabs 05/04/23 [Rx Last Taken Unknown] hydrocodone-acetaminophen 5-325mg 5mg-325mg 1 tab PO Q6H PRN PRN Pain 3 days #12 TABLETS 06/09/23 [Rx Last Taken Unknown] Allergy/AdvReac Type Severity Reaction Status Date / Time Food Allergies: Uncoded Allergy Severe Anaphylaxis Verified 05/01/23 09:06 peanut Allergy Severe Anaphylaxis Verified 05/01/23 09:06 latex Allergy Swelling Verified 05/01/23 09:06 Surgical History Hx of section Social History Smoking Status: Former smoker ROS ROS ED Constitutional Constitutional ED: Denies chills, fever(s) or weight loss Eyes Eyes: Denies change in vision or diplopia ENT ENT ED: Denies ear pain, rhinorrhea or sore throat Cardiovascular Cardiovascular: Denies chest pain, orthopnea, palpitations or racing heartbeat Respiratory/Chest Respiratory/Chest: Denies cough, dyspnea or orthopnea Gastrointestinal Gastrointestinal: Reports abdominal pain; Denies diarrhea, nausea or vomiting Genitourinary Genitourinary ED: Denies dysuria, hematuria or urinary frequency Musculoskeletal Musculoskeletal: Denies arthralgias or myalgias Integumentary Denies abscess or rash Neurologic Neurologic: Denies headache(s) or weakness Psychiatric Psychiatric: Denies anxiety, depression, suicidal ideation or suicidal thoughts Endocrine Endocrinology: Denies polydipsia, polyphagia or polyuria Allergic/Immunologic Allergic/Immunologic ED: Denies mouth swelling, tongue swelling or urticaria EXAM Physical Exam Const Vital Signs: 06/09/23 03:00 06/09/23 06:51 06/09/23 07:25 Temperature 97.2 F L 98.7 F 98 F Temperature Source Oral Oral Pulse Rate 65 45 L 50 L Respiratory Rate 18 18 16 Blood Pressure 114/82 H 99/65 95/59 L Blood Pressure Mean 92 76 71 Pulse Ox 99 99 100 Oxygen Delivery Method Room Air Room Air Positive well nourished and well developed General Appearance ED: well developed HEENT Reports normocephalic, head/scalp atraumatic and moist mucous membranes Eyes PERRL and EOMs intact bilaterally Neck no lymphadenopathy, supple and no JVD Resp normal respiratory effort and clear to auscultation bilaterally Cardio regular rate, regular rhythm and no murmurs GI GI Narrative: There is a well-healing surgical incision consistent with . There is no surrounding erythema or drainage. Inspection: Negative for abdominal distention Auscultation: normoactive bowel sounds Palpation: soft and tender suprapubic Back/Spine no CVA tenderness and normal ROM Extremity normal to inspection General Extremety ED: Negative for edema General Extremity: Negative for edema Neuro oriented x3 and CN's II-XII intact bilaterally Sensorium / Orientation: alert Motor Exam: strength 5/5 throughout Psych mental status grossly normal Mood & Affect: Negative for depressed or tearful Skin no rashes or lesions noted and no wounds MDM MDM MDM Narrative Medical decision making narrative: White count 12.9 hemoglobin 11.3 platelet count of 315. BMP within normal limits liver enzymes within normal limits test negative lipase 36 urinalysis shows some contamination with 5-10 squamous cells 4+ bacteria 25-50 white cells. Leukocyte Estrace is positive negative nitrates. She is not having urinary symptoms. I can send this for culture. CT of the abdomen pelvis with IV contrast was obtained. Please see the radiologist read. I spoke first with nurse practitioner for [facility] obstetrics and also with Dr. Miles directly. Dr. Miles knows the patient. I reviewed the case presentation the labs and the CT findings. It is felt that the patient could follow-up as an outpatient and I can write for her to have pain medication. I did discuss with the patient the above results he notes understanding. History & Record Review Discussion w/independent historian: Patient Lab Data Labs: Laboratory Results - last 24 hr 06/09/23 06/09/23 04:11 04:45 WBC 12.9 H RBC 4.30 Hgb 11.3 L Hct 36.9 L MCV 85.8 MCH 26.3 L MCHC 30.6 L RDW Std Deviation 53.1 H RDW Coeff of Nick 16.9 H Plt Count 315 MPV 9.6 Immature Gran % (Auto) 0.300 Neut % (Auto) 80.6 H Lymph % (Auto) 11.5 L [place] % (Auto) 5.8 Eos % (Auto) 1.5 Baso % (Auto) 0.3 Absolute Neuts (auto) 10.4 H Absolute Lymphs (auto) 1.48 Nucleated RBC % 0 Sodium 138 Potassium 3.8 Chloride 107 Carbon Dioxide 25.0 Anion Gap 6 BUN 12 Creatinine 0.80 Estim Creat Clear Calc 92.83 Est GFR (MDRD) Af Amer 113 Est GFR (MDRD) Non-Af 94 BUN/Creatinine Ratio 15.1 Glucose 91 Calcium 8.7 Total Bilirubin 0.20 Direct Bilirubin 0.12 AST 13 L ALT 18 Alkaline Phosphatase 41 L Total Protein 7.0 Albumin 3.6 Globulin 3.4 Lipase 36 Serum , Qual NEGATIVE Urine Color Yellow Urine Clarity Clear Urine pH 5.0 Ur Specific [place] 1.015 Urine Protein Negative Urine Glucose (UA) Normal Urine Ketones Negative Urine Occult Blood 10 H Urine Nitrite Negative Urine Bilirubin Negative Urine Urobilinogen Normal Ur Leukocyte Esterase 500 H Urine RBC 0 SEEN Urine WBC 25-50 SEEN Ur Squamous Epith Cells 5-10 SEEN Urine Bacteria 4+ Urine Mucus 0 SEEN Radiography Diagnostic Testing: Clinical Impression(s) from Imaging Studies Abdomen/Pelvis CT 06/09/23 03:52 IMPRESSION: 1. Thick-walled hypodense mass between what appears to be incision in the anterior uterus at the lower uterine segment and the bladder dome with mass effect on the bladder, 5.9 cm maximum diameter. Apparently liquefied hematoma extending at least slightly into lower uterine segment incision. This does not contain gas bubbles. Not obviously infected hematoma-abscess but correlate with feverleukocytosis. 2. Small gas bubbles superior to the pubic symphysis and anterior to the bladder, multifocal, presumably postoperative. 3. Mild intrapelvic fluid. 4. Separate 2.3 cm suspected right ovarian follicle. 5. Mildly thick-walled appearance of the rectum. 6. Slightly prominent appearance of the mid to distal appendix. Not convincing for appendicitis. 7. Cholelithiasis. Contracted gallbladder. N.B. : The above Results were Read Back by Myra Horn MD to Elan Santos DO, and understanding confirmed on 06/09/2023 06:06:55 (ET). Electronically Signed: Myra Horn MD at 6:03 EDT , Discharge Plan Triage Chief Complaint: Abd Pain ED Provider: Elan Santos Dx/Rx/DC Orders Clinical Impression: Pelvic pain, Pelvic hematoma Prescriptions: New hydrocodone-acetaminophen [hydrocodone-acetaminophen] 5-325 mg tablet 1 tab PO Q6H PRN PRN (Reason: Pain) 3 Days Qty: 12 0RF No Action ferrous sulfate [FeroSul] 325 mg (65 mg iron) tablet 325 mg PO DAILY Patient Comments: Take 1 tablet by mouth every other day. acetaminophen 500 mg Tablet 1,000 mg PO Q6H Qty: 30 1RF ibuprofen 600 mg Tablet 600 mg PO Q6H Qty: 30 1RF ferrous sulfate [FeroSul] 325 mg (65 mg iron) Tablet 325 mg PO DAILY Qty: 30 1RF Primary Care Provider: Care Physician,No Primary Referrals: Julia Miles MD [Med Staff - Active Staff] - As soon as possible Care Physician,No Primary [Primary Care Provider] - Disposition Disposition: Home, Self Care Discharge Date/Time: 06/09/23 07:29
[2023-06-09 05:01] LABS: Mucous, Urine 0 SEEN /hpf (<or=2+); Red Blood Cells-Urine 0 SEEN /hpf (0-5)
[2023-06-09 05:09] LABS: Color, Urine Yellow (Yellow); Glucose, Dipstick Normal (Normal); Ketone-Dipstick Negative (Negative); Leukocyte Esterase-Dipstick 500 /ul (Negative); Nitrite-Dipstick Negative (Negative); Occult Blood-Urine 10 /ul (Negative); Protein-Dipstick Negative (Negative); Specific Gravity, Urine 1.015 (1.002-1.030); Urine Bilirubin Dipstick Negative (Negative); Urine Clarity Clear (Clear); Urine Urobilinogen Normal (Normal)
[2023-06-09 05:32] LABS: Bacteria 4+ /hpf (None Seen); Squamous Epithelial Cells - UA 5-10 SEEN /hpf (5-10); White Blood Cells 25-50 SEEN /hpf (0-5)
[2023-06-09 06:51] VITALS: BP 99/65; PULSE 45; RESP 18; TEMP 37.1; O2SAT 99
[2023-06-09 07:25] VITALS: BP 95/59; PULSE 50; RESP 16; TEMP 36.6; O2SAT 100
== END 2023-06-09 07:29 | disposition home or self-care (01) ==
PROVIDERS: Emergency Provider Emergency Medicine; Visit Provider Emergency Medicine
DX: R10.2 Pelvic and perineal pain (principal); Z87.891 Personal history of nicotine dependence; R19.00 Intra-abdominal and pelvic swelling, mass and lump, unspecified site; K80.20 Calculus of gallbladder without cholecystitis without obstruction
CPT/HCPCS: 74177; 80048; 80076; 81001; 83690; 84703; 85025; 96374; 99282; Q9967; A4216

== ENCOUNTER 2023-08-04 17:39 | Emergency (ER) | payer MEDICAID, SELFPAY ==
[2023-08-04 17:40] VITALS: BP 124/55; PULSE 76; RESP 18; TEMP 36.6; O2SAT 100; BMI 23.8
--- NOTE | 2023-08-04 18:57 | EDS_ITS ---
HPI HPI - GI History of Present Illness Chief Complaint: Abd Pain Narrative Narrative: 23-year-old female past medical history of / delivery 3 months ago developed a hematoma the size of a baseball afterwards. She states that about a month ago she was seen in the emergency department, diagnosed with a hematoma, told it would dissolve and was given pain medications. She was doing well until a few days ago where she started developing pain in the right lower quadrant. Today, her pain returned, and initially she rated it a 5 out of 10, but currently a 9 out of 10. She was nauseated but did not vomit. It feels the same as when she had her hematoma pain. She denies any exacerbating or alleviating factors. [facility] Medical History Limited care Depression Home Medications ?Medication ?Instructions ?Recorded ?Last Taken ?Type hydrocodone-acetaminophen 5-325mg 1 tab PO Q6H PRN PRN Pain 3 days 08/04/23 Unknown Rx 5mg-325mg #12 TABLETS sertraline 25 mg tablet (Zoloft) 25 mg PO DAILY 08/04/23 Unknown History Allergy/AdvReac Type Severity Reaction Status Date / Time Food Allergies: Uncoded Allergy Severe Anaphylaxis Verified 08/04/23 17:41 peanut Allergy Severe Anaphylaxis Verified 08/04/23 17:41 latex Allergy Swelling Verified 08/04/23 17:41 Surgical History Hx of section Social History Smoking Status: Former smoker ROS ROS ED ROS Narrative Constitutional: No fever, no chills. HEENT: No sore throat. No neck pain. No loss of vision. No rhinorrhea. Cardiovascular: No chest pain. No palpitations. No pedal edema. Respiratory: No cough, no shortness of breath. Abdominal: Right lower quadrant abdominal pain. Positive nausea. No vomiting. Genitourinary: No dysuria. No hematuria. Musculoskeletal: No myalgias. No arthralgias. Neurologic: No headaches. No dizziness. No lightheadedness. Skin: No rash. No change in color. Psychiatric: No depression. No anxiety. EXAM Physical Exam Narrative Exam Narrative: Afebrile. Vital signs noted. HEENT: Normocephalic. Atraumatic. PERRL, EOMI. Neck soft and supple. No point tenderness or step off. Cardiovascular: Regular rate and rhythm. No murmurs, rubs, or gallops appreciated. Respiratory: No tachypnea. Lungs clear to auscultation bilaterally. Gastrointestinal: Abdomen soft, positive tenderness to palpation right lower quadrant, more towards pelvis, with normoactive bowel sounds. No rebound or guarding. Genitourinary, chaperoned pelvic examination revealed normal external genitalia, no evidence of uterine bleeding on speculum examination, bimanual examination showed no cervical motion tenderness, no exquisite right adnexal tenderness. Neurological: Awake. Alert. Nonfocal, nonlateralizing. Skin: No rash. Normal color. No pallor. Musculoskeletal: No pedal edema. Full range of motion extremities. Const Vital Signs: 08/04/23 17:40 08/04/23 19:39 08/04/23 21:00 Temperature 98 F Temperature Source Temporal Pulse Rate 76 54 L Respiratory Rate 18 19 H Blood Pressure 124/55 H 108/87 H 108/59 L Blood Pressure Mean 78 94 75 Pulse Ox 100 99 Oxygen Delivery Method Room Air Room Air MDM MDM MDM Narrative Medical decision making narrative: In the differential diagnosis is hematoma pain versus acute appendicitis versus bowel obstruction. She could also have an ovarian cyst or an ectopic as she states she has had a bilateral tubal ligation. Comprehensive workup was pursued. I reviewed her prior ED visit. In review of the radiology report from the CT there was a pelvic hematoma from her section. She will be given a pulse of IV fluids, morphine and ondansetron I do feel that CT needs to be repeated to make sure there is no abscess development or no worsening hematoma. I reviewed her laboratory work and she has slight elevation of her white count 11.9 which I think is nonspecific, hemoglobin stable 11.9, platelet count normal at 231. Electrolyte panel shows slight elevation of chloride at 111, normal s odium of 139, potassium normal at 3.7, glucose appropriately elevated at 94. LFTs show AST low at 14. Serum test is negative. I reviewed the CT report of the abdomen and pelvis which shows no evidence of hematoma. There are bilateral ovarian cysts, and there is comment on fluid collections as large as 5.0 cm on the right with small amount/mild amount of free fluid in the pelvis. After morphine, patient was feeling improved, but started to have more pain again. I will perform a pelvic examination and I do feel that transvaginal ultrasound needs to be performed to rule out ovarian torsion given her bilateral ovarian cysts. I reviewed the radiology report of the ultrasound of the pelvis. While they thought the fluid collection was an ovarian cyst on the right on the CT scan, this is actually the resolving hematoma. Radiologist report comments that it is smaller in size than previous. Hence, I do think that her pain is probably from the resolving hematoma that is still present. I wrote her prescription for 12 more [place] tablets which she had received previously. I feel she can be discharged safely home with follow-up to her CHANGE CONTROL ANALYST at the [facility]. I have lower concern for ovarian torsion currently. Return instructions to the emergency department were reviewed. Disposition is discharged home in stable condition. History & Record Review Additional record(s) reviewed:: Prior ED visit Lab Data Attestation: I reviewed the patient's lab results. Labs: Laboratory Results - last 24 hr 08/04/23 08/04/23 19:03 20:08 WBC 11.9 H RBC 4.58 Hgb 11.9 L Hct 38.6 MCV 84.3 MCH 26.0 L MCHC 30.8 L RDW Std Deviation 47.2 H RDW Coeff of Nick 15.4 H Plt Count 231 MPV 10.5 Immature Gran % (Auto) 0.500 Neut % (Auto) 78.9 H Lymph % (Auto) 12.4 L [place] % (Auto) 7.1 Eos % (Auto) 0.8 Baso % (Auto) 0.3 Absolute Neuts (auto) 9.4 H Absolute Lymphs (auto) 1.47 Nucleated RBC % 0 Sodium 139 Potassium 3.7 Chloride 111 H Carbon Dioxide 24.0 Anion Gap 4 L BUN 7 Creatinine 0.69 Estim Creat Clear Calc 107.63 Est GFR (MDRD) Af Amer 132 Est GFR (MDRD) Non-Af 109 BUN/Creatinine Ratio 10.1 Glucose 94 Calcium 8.8 Total Bilirubin 0.20 AST 14 L ALT 17 Alkaline Phosphatase 36 L Total Protein 7.3 Albumin 3.8 Globulin 3.5 Albumin/Globulin Ratio 1.1 Serum , Qual NEGATIVE Urine Color Yellow Urine Clarity Sl. Cloudy Urine pH 6.0 Ur Specific [place] 1.015 Urine Protein Negative Urine Glucose (UA) Normal Urine Ketones Negative Urine Occult Blood 10 H Urine Nitrite Negative Urine Bilirubin Negative Urine Urobilinogen Normal Ur Leukocyte Esterase 100 H Urine RBC 0 SEEN Urine WBC 5-10 SEEN Ur Squamous Epith Cells 5-10 SEEN Urine Bacteria 4+ Urine Mucus 0 SEEN Radiography Diagnostic Testing: Clinical Impression(s) from Imaging Studies Abdomen/Pelvis CT 08/04/23 18:57 IMPRESSION: Bilateral ovarian cysts. Small amount of free fluid in the pelvis. There is no evidence of hematoma. No other acute abnormalities are identified. Electronically Signed: Artem Dwyer MD at 20:16 EDT , Transvaginal US 08/04/23 20:42 IMPRESSION: 1. Mixed echogenic mass anterior to the uterus which may represent resolving hematoma. This was called a right ovarian cyst on the CT scan and was present on the previous CT dated 06/09/2023 and has decreased in size compatible with a resolving hematoma. 2. Complex left ovarian cyst. Electronically Signed: Artem Dwyer MD at 21:52 EDT , Discharge Plan Triage Chief Complaint: Abd Pain ED Provider: Sumeet Fair Dx/Rx/DC Orders Clinical Impression: Pelvic pain, Pelvic hematoma Instructions: ED Hematoma, ED Pelvic Pain, Unknown Cause Prescriptions: New hydrocodone-acetaminophen 5-325 mg tablet 1 tab PO Q6H PRN PRN (Reason: Pain) 3 Days Qty: 12 0RF No Action sertraline [Zoloft] 25 mg tablet 25 mg PO DAILY Primary Care Provider: Care Physician,No Primary Referrals: Care Physician,No Primary [Primary Care Provider] - Activity Restrictions/Additional Instructions: Follow-up with your CHANGE CONTROL ANALYST in the next few days. Return with increased pain, nausea and vomiting, fever, new or worsening symptoms. Print Language: Prydeinig Disposition Disposition: Home, Self Care
--- NOTE | 2023-08-04 18:57 | CT_ITS ---
EXAM: CT ABDOMEN AND PELVIS WITH INTRAVENOUS CONTRAST CLINICAL INDICATION: RLQ pain, history of hematoma after C section TECHNIQUE: Helically acquired images were obtained of the abdomen and pelvis with intravenous contrast. This CT exam was performed using one or more of the following dose reduction techniques: automated exposure control, adjustment of the mA and/or kV according to patient size, and/or use of iterative reconstruction technique. CONTRAST: IV 75mL [id number] COMPARISON: 06/09/2023 FINDINGS: LOWER THORAX: Unremarkable. Lung bases are clear. No cardiomegaly. No significant pericardial effusion. ABDOMEN: LIVER: Unremarkable. Homogeneous. No focal mass. GALLBLADDER AND BILE DUCTS: There are multiple gallstones present with no inflammation. No gallbladder distention or wall edema. No intra- or extrahepatic biliary ductal dilation. PANCREAS: Unremarkable. No focal cystic or solid mass. SPLEEN: Unremarkable. Normal size without focal cystic or solid mass. ADRENALS: Unremarkable. No nodules. KIDNEYS AND URETERS: Unremarkable. Normal renal size and position. No hydronephrosis. STOMACH AND BOWEL: Unremarkable. No stomach or bowel distention. No focal inflammatory change. PELVIS: APPENDIX: No evidence of acute appendicitis. BLADDER: Unremarkable. REPRODUCTIVE: Unremarkable as visualized. No mass. ABDOMEN and PELVIS: INTRAPERITONEAL SPACE: There is a fluid density mass in the mid pelvis measures 5.0 x 4.0 cm may represent a cyst. There is a second fluid density mass in the left hemipelvis that measures 3.2 x 2.6 cm which may represent. There is a mild amount of free fluid in the right lower quadrant. There is no evidence of abscess. No free air. BONES/JOINTS: Unremarkable. No suspicious lytic or blastic abnormality. SOFT TISSUES: Unremarkable. No discrete abdominal or pelvic wall hernia. VASCULATURE: Unremarkable. Abdominal aorta is non-dilated. LYMPH NODES: Unremarkable. No enlarged lymph nodes. CT/Abdomen/Pelvis W IV Cont ONLY IMPRESSION: Bilateral ovarian cysts. Small amount of free fluid in the pelvis. There is no evidence of hematoma. No other acute abnormalities are identified. Electronically Signed: Artem Dwyer MD at 20:16 EDT ,
[2023-08-04] MEDS: 0.9% Normal Saline (1000mL) 1,000 ML 999 ML IV (19:06)
[2023-08-04] MEDS: Ondansetron 4 MG/2 ML Vial IV (19:07)
[2023-08-04] MEDS: Morphine 4 MG/ML Syringe IV ×2 (19:07→21:32)
[2023-08-04 19:18] LABS: Absolute Lymphocyte Count 1.47 X10^3/uL (0.83-4.51); Absolute Neutrophil Count 9.4 X10^3/uL (2.0-7.7); Basophil# 0.03 X10^3/uL; Basophil% 0.3 % (0-1); Eosinophil# 0.09 X10^3/uL; Eosinophils% 0.8 % (0-5); Hematocrit 38.6 % (37-47); Hemoglobin 11.9 g/dL (12.0-15.0); Lymphocyte # 1.47 X10^3/ul (0.83-4.51); Lymphocyte % 12.4 % (19-41); Mean Corp Hgb Conc 30.8 g/dL (32-36); Mean Corpuscular Volume 84.3 fL (81-99); Mean Platelet Vol. 10.5 fl (6.2-12.0); Monocyte# 0.84 X10^3/uL; Monocyte% 7.1 % (0-10); NRBC Flagged by Analyzer 0 % (0-5); Neutrophil # 9.37 X10^3/uL (2.7-7.7); Neutrophil % 78.9 % (47-70); Platelet Count 231 K/mm3 (150-450); RBC Distribution Width CV 15.4 % (11.6-14.6); RBC Distribution Width SD 47.2 fl (35.1-43.9); Red Blood Count 4.58 M/mm3 (4.2-5.4); White Blood Count 11.9 K/mm3 (4.4-11.0)
[2023-08-04 19:39] VITALS: BP 108/87
[2023-08-04 19:40] LABS: ALB/GLOB Ratio 1.1 RATIO (0.9-2.4); AST(SGOT) 14 U/L (15-37); Alanine Aminotransfer ALT/SGPT 17 U/L (13-56); Albumin, Serum 3.8 g/dL (3.2-5.0); Alkaline Phosphatase 36 U/L (45-117); Anion Gap 4 (5-15); BUN 7 mg/dL (7-18); BUN/Creat Ratio 10.1 RATIO (10-20); Calcium,Total 8.8 mg/dL (8.5-10.1); Chloride 111 mmol/L (98-107); Creatinine, Serum 0.69 mg/dL (0.55-1.02); EST Glomerular Filtration Rate 109 mL/min (>60); Est Glom Filt Rate - Afr Amer 132 mL/min (>60); Estimated Creatinine Clearance 107.63 ml/min; Globulin 3.5 g/dL (2.2-4.2); Glucose 94 mg/dL (74-106); Internal QC Validated? YES +Cl - CLEAR BKGD; Potassium 3.7 mmol/L (3.5-5.1); Pregnancy, Serum, hCG Quali. NEGATIVE Negative; Protein, Total 7.3 g/dL (6.4-8.2); Record Kit Lot#, Serum Preg. 735774; Sodium Level 139 mmol/L (136-145)
[2023-08-04 20:13] LABS: Mucous, Urine 0 SEEN /hpf (<or=2+); Red Blood Cells-Urine 0 SEEN /hpf (0-5)
[2023-08-04 20:15] LABS: Color, Urine Yellow (Yellow); Glucose, Dipstick Normal (Normal); Ketone-Dipstick Negative (Negative); Leukocyte Esterase-Dipstick 100 /ul (Negative); Nitrite-Dipstick Negative (Negative); Occult Blood-Urine 10 /ul (Negative); Protein-Dipstick Negative (Negative); Specific Gravity, Urine 1.015 (1.002-1.030); Urine Bilirubin Dipstick Negative (Negative); Urine Clarity Sl. Cloudy (Clear); Urine Urobilinogen Normal (Normal)
--- NOTE | 2023-08-04 20:42 | US_ITS ---
EXAM: US PELVIS TRANSVAGINAL CLINICAL INDICATION: Pelvic pain TECHNIQUE: Transvaginal pelvic ultrasound was performed with grayscale and color Doppler imaging. Transvaginal imaging was used for better evaluation of the endometrium and adnexa. COMPARISON: No relevant prior studies available. FINDINGS: UTERUS/CERVIX: Uterus measures 8.6 x 4.5 x 6.0 cm. The endometrium measures 9 mm. Anteverted. There is no uterine mass. RIGHT OVARY: The right ovary measures 3.1 x 1 point by 1.9 cm. Blood flow is present in the right ovary. LEFT OVARY: The left ovary measures 3.9 x 2.9 cm. There is a mixed echogenic structure in the ovary that measures 2.4 x 2.9 x 2.3 cm. Blood flow is present in the left ovary. FREE FLUID: There is free fluid in the pelvis. BLADDER: Empty bladder which cannot be evaluated with this probe. OTHER FINDINGS: In the midline. There is a hypoechoic solid-appearing mass that measures 5.7 x 3.9 x 4.5 cm. US/Transvaginal Non- IMPRESSION: 1. Mixed echogenic mass anterior to the uterus which may represent resolving hematoma. This was called a right ovarian cyst on the CT scan and was present on the previous CT dated 06/09/2023 and has decreased in size compatible with a resolving hematoma. 2. Complex left ovarian cyst. Electronically Signed: Artem Dwyer MD at 21:52 EDT ,
[2023-08-04 21:00] VITALS: BP 108/59; PULSE 54; RESP 19; O2SAT 99
[2023-08-04 21:08] LABS: Bacteria 4+ /hpf (None Seen); Squamous Epithelial Cells - UA 5-10 SEEN /hpf (5-10); White Blood Cells 5-10 SEEN /hpf (0-5)
[2023-08-04 22:28] VITALS: BP 94/66; PULSE 54; RESP 16; TEMP 37.1; O2SAT 95
== END 2023-08-04 22:34 | disposition home or self-care (01) ==
PROVIDERS: Emergency Provider Emergency Medicine; Visit Provider Emergency Medicine
DX: S37.892A Contusion of other urinary and pelvic organ, initial encounter (principal); N83.201 Unspecified ovarian cyst, right side; N83.202 Unspecified ovarian cyst, left side; R11.0 Nausea; Z87.891 Personal history of nicotine dependence; F32.A Depression, unspecified; Z79.899 Other long term (current) drug therapy; X58.XXXA Exposure to other specified factors, initial encounter
CPT/HCPCS: 74177; 76830; 80053; 81001; 84703; 85025; 96361; 96374; 96375; 96376; 99284; J7030; Q9967; A4216; J2405